=== PATIENT | male | born 1945 | race Caucasian/White ===

== ENCOUNTER 2016-08-21 05:42 | Outpatient (CLI) | payer MEDICARE, OTHER ==
[~2016-08-21] VITALS: Ht 188 cm; Wt 111.1 kg
[~2016-08-21 05:42] MED LIST: ALPR1TAB72 PO; AMLO10TA82 PO; AMLODIPINE; ARIP2TAB3 PO; CANDESARTAN; CLN.1T PO; CLN150C1RX; DESV100T PO; DULCOLAX STOOL SOFTE; DULO30CA; GLBR5T PO; INDO25CA PO; LEVO5DRO OP; LORA0.5T34; LORA1TAB PO; MTF500T PO; MULT1TAB63; NEBI5TAB8 PO; OXYC-12 PO; VALS320T8 PO; ZONI100C11 PO
--- OUTSIDE RECORDS SUMMARY | 2016-08-21 05:45 | XMS REPORT | Continuity of Care Document ---
Author Author [facility] Organization [facility] Address Unknown Phone Unavailable Care Team Providers Care Cna Per Diem Name Role Phone Aristides Sungyd PCP [phone] Source Comments Some departments are not documenting in the electronic medical record. If you do not see the information that you expected, contact Release of Information in the Health Information Management department at [phone] for further assistance in locating additional records.[facility] Active Allergies and Adverse Reactions No Known Allergies Current Medications Prescription Sig. Disp. Refills Start End Date Status Date metFORMIN (GLUCOPHAGE) Take 500 mg by mouth Active 500 mg tablet daily. glimepiride (AMARYL) 4 mg Take 4 mg by mouth daily. Active tablet vilazodone (VIIBRYD) 40 Take 40 mg by mouth Active mg tab daily. amLODIPine (NORVASC) 10 Take 10 mg by mouth Active mg tablet daily. asenapine(+) (SAPHRIS) 5 Place 5 mg under tongue Active mg subl tablet at bedtime daily. aspirin EC 81 mg tablet Take 81 mg by mouth Active daily. Take with food. DONEPEZIL HCL (DONEPEZIL Take 10 mg by mouth Active PO) daily. clonidine ER (+) (KAPVAY) Take 0.1 mg by mouth Active 0.1 mg tablet every 12 hours. dexamethasone (DECADRON) Apply 2 drops in each 20 mL 1 06/27/20 Active 0.1 % ophthalmic solution nostril 3 times a day 16 gabapentin (NEURONTIN) Take 3 Caps by mouth 180 Cap 6 08/01/20 Active 300 mg capsule twice daily. 16 prednisolone acetate USE 2 DROPS IN EACH 20 mL 0 08/09/20 Active (PRED FORTE) 1 % NOSTRIL THREE TIMES DAILY 16 ophthalmic suspension gabapentin (NEURONTIN) Take 3 Caps by mouth 270 Cap 5 12/13/1907/27 Discontin 300 mg capsule three times daily. 16 16 ued Indications: NEUROPATHIC PAIN prednisolone acetate Instil 2 drops in each 20 mL 0 07/21/20 Discontin (PRED FORTE) 1 % nostril three times 16 16 ued ophthalmic suspension daily, take one week off per month Active Problems Problem Noted Date Chronic recurrent sinusitis 08/02/2016 Overview: Seasonal allergic rhinitis due to pollen 06/27/2016 Overview: Pos skin testing [place], shots did not help Hypertrophy of inferior nasal turbinate 06/27/2016 Overview: ? allergic Nasal septal deviation 06/27/2016 Overview: Right posterior superior Hx of bariatric surgery 06/27/2016 S/P gastric surgery 06/27/2016 Overview: "gastric sleave", [facility] Now weighs 245 (was 350) prior to surgery Elevated rheumatoid factor 05/03/2016 Cervical stenosis of spine 12/13/2015 Mild cognitive impairment 12/13/2015 Alcohol abuse 08/20/2015 Impaired gait 08/16/2015 Peripheral polyneuropathy (HCC) 08/16/2015 Ulnar neuropathy of left upper extremity 08/16/2015 Cervical radiculopathy 08/16/2015 Memory deficit 08/16/2015 Overview: Hx EtOh in past Essential hypertension 06/27/1998 Overview: Controlled on meds Most Recent Encounters Date Type Specialty Providers Description 09/29/2016 [facility] Nathan Reinoso MD Chronic sinusitis Encounter 08/09/2016 Refill Otolaryngology Nathan Reinoso MD 08/02/2016 Office Visit Otolaryngology Nathan Reinoso MD Chronic recurrent sinusitis (Primary Dx); Memory deficit; Nasal septal deviation; Hypertrophy of inferior nasal turbinate 08/02/2016 [facility] Radiology Nathan Reinoso MD Encounter 08/02/2016 Prep for Case Otolaryngology Nathan Reinoso MD 07/27/2016 Refill Neurology Jennifer Fraire MBBS 07/21/2016 Orders Only Otolaryngology Nathan Reinoso MD 07/21/2016 Orders Only Allergy,Immunology and JetanalAileen helton MD Rheumatoid factor Rheumatology positive 07/19/2016 Orders Only Allergy,Immunology and JetanalinAileen MD Rheumatoid factor Rheumatology positive 07/13/2016 Telephone Allergy,Immunology and JetanalAileen helton MD Imaging - xray order Rheumatology 07/12/2016 Office Visit Allergy,Immunology and Aileen Jade MD Rheumatoid factor Rheumatology positive (Primary Dx); Primary osteoarthritis of both hands; Polyneuropathy, peripheral sensorimotor axonal; Cervical spinal stenosis; History of alcohol abuse 06/27/2016 Office Visit Otolaryngology Nathan Reinoso MD Seasonal allergic rhinitis due to pollen (Primary Dx); Hypertrophy of inferior nasal turbinate; Essential hypertension; Nasal septal deviation; S/P gastric surgery 05/23/2016 Documentation Neurology Jennifer Fraire MBBS Social History Tobacco Use Types Packs/Day Years Used Date Former Smoker Cigarettes Started: 08/13/1997 Smokeless Tobacco: Never Used Alcohol Use Drinks/Week oz/Week Comments No 0 Standard 0.0 drinks or equivalent Last Filed Vital Signs Vital Sign Reading Time Taken Blood Pressure 176/83 08/02/2016 12:16 PM NAPKIN MACHINE OPERATOR Pulse 70 08/02/2016 12:16 PM NAPKIN MACHINE OPERATOR Temperature 36.5 C (97.7 F) 07/12/2016 1:56 PM NAPKIN MACHINE OPERATOR Respiratory Rate - - Height 1.88 m (6' 2") 08/02/2016 12:16 PM NAPKIN MACHINE OPERATOR Weight 111.131 kg (245 lb) 08/02/2016 12:16 PM NAPKIN MACHINE OPERATOR Body Mass Index 31.44 08/02/2016 12:16 PM NAPKIN MACHINE OPERATOR Oxygen Saturation - - Plan of Care Date Type Specialty Providers Description 09/14/2016 Appointment Anesthesiology Antonio Reinoso MD [address] [facility] [address] [place] [address] [phone] (Fax) 09/29/2016 Surgery Nathan Reinoso MD FUNCTIONAL ENDOSCOPIC [address] [facility] SINUS SURGERY WITH [address] [place] [address] TISSUE REMOVAL [phone] INDICATED [phone] (Fax) 01/30/2017 Appointment Neurology Jennifer Fraire MBBS [address] [facility] [address] [place] [address] [phone] (Fax) Health Maintenance Due Date Last Done Comments Physical (Comprehensive) 1952 Exam Pertussis Vaccine 1957 Tetanus Vaccine 1963 Colorectal Cancer 1996 Screening Shingles Vaccine 2006 Prevnar/Pneumovax (#1) 2011 Influenza Vaccine 04/13/2016 Hepatitis C Screening Completed 07/13/2016 Results from Last [address] MAXIFACIAL/SINUS WO CONTRAST (08/02/2016 12:01 PM) Impressions 1. Normal appearance of the nasal turbinates with left maxillary sinus and bilateral ethmoid air cell mucosal thickening. 2. Right canal wall down mastoidectomy mastoidectomy with small irregular ossicles. Approved by Theodore Aquino M.D. on 08/02/2016 4:14 PM By my electronic signature, I attest that I have personally reviewed the images for this examination and formulated the interpretations and opinions expressed in this report Finalized by JUAQUIN WHARTON M.D. on 08/02/2016 5:17 PM. Dictated by Theodore Aquino M.D. on 08/02/2016 2:29 PM. Narrative EXAM: CT MAXILLOFACIAL HISTORY: 70-year-old male, hypertrophy of inferior nasal turbinate; allergic rhinitis, seasonal allergic rhinitis due to pollen, hypertrophy of inferior nasal turbinate, nasal septal deviation TECHNIQUE:Multiple contiguous axial images were obtained through the maxillofacial region with coronal reformatted images. COMPARISON: MRI head chamber 2015 FINDINGS: JUAQUIN WHARTON M.D. has personally reviewed these images and formulated the interpretations and opinions expressed in this report. The visualized intracranial structures, globes, and orbits are unremarkable. There is mild mucosal thickening in the left maxillary sinus as well as scattered areas of mild mucosal thickening in the bilateral ethmoid air cells. The frontal and sphenoid sinuses are clear. There is no mucoperiosteal reaction or destructive osseous lesion. Previous right canal wall down mastoidectomy is present with small irregular ossicles. The nasal turbinates appear normal. Nasal septum is deviated to the right anteriorly with a small left deviated nasal spur more posteriorly. The dentition is unremarkable. Procedure Note Interface, Radiant Results - SunAug 02, 2016 5:21 PM NAPKIN MACHINE OPERATOR EXAM: CT MAXILLOFACIAL HISTORY: 70-year-old male, hypertrophy of inferior nasal turbinate; allergic rhinitis, seasonal allergic rhinitis due to pollen, hypertrophy of inferior nasal turbinate, nasal septal deviation TECHNIQUE: Multiple contiguous axial images were obtained through the maxillofacial region with coronal reformatted images. COMPARISON: MRI head chamber 2015 FINDINGS: JUAQUIN WHARTON M.D. has personally reviewed these images and formulated the interpretations and opinions expressed in this report. The visualized intracranial structures, globes, and orbits are unremarkable. There is mild mucosal thickening in the left maxillary sinus as well as scattered areas of mild mucosal thickening in the bilateral ethmoid air cells. The frontal and sphenoid sinuses are clear. There is no mucoperiosteal reaction or destructive osseous lesion. Previous right canal wall down mastoidectomy is present with small irregular ossicles. The nasal turbinates appear normal. Nasal septum is deviated to the right anteriorly with a small left deviated nasal spur more posteriorly. The dentition is unremarkable. IMPRESSION 1. Normal appearance of the nasal turbinates with left maxillary sinus and bilateral ethmoid air cell mucosal thickening. 2. Right canal wall down mastoidectomy mastoidectomy with small irregular ossicles. Approved by Theodore Aquino M.D. on 08/02/2016 4:14 PM By my electronic signature, I attest that I have personally reviewed the images for this examination and formulated the interpretations and opinions expressed in this report Finalized by JUAQUIN WHARTON M.D. on 08/02/2016 5:17 PM. Dictated by Theodore Aquino M.D. on 08/02/2016 2:29 PM. ANTI SSA ANTI SSB AB (07/13/2016) Specimen Blood CRYOGLOBULIN W REFLEX IMMUNOFIXATION (07/13/2016) Specimen Blood HEPATITIS B SURFACE AG (07/13/2016) Specimen Blood HEPATITIS C AB (07/13/2016) Specimen Blood HEPATITIS B CORE AB TOT (IGG+IGM) (07/13/2016) Specimen Blood ANTI-CYCLIC CITRULLINATED PEPT (07/13/2016) Specimen Blood ELECTROPHORESIS-SERUM PROTEIN (07/13/2016) Specimen Blood HAND MIN 3 VIEWS BILATERAL (07/13/2016)
[2016-08-21] MEDS ORDERED: CLON0.1T PO (14:36)
[2016-08-21] MEDS ORDERED: DOXE10CA29 PO (14:36)
[2016-08-21] MEDS ORDERED: GABA-488 PO (14:36)
[2016-08-21] MEDS ORDERED: VILA40TA PO (14:36)
== END 2016-08-21 14:38 ==
LOC: PREOP 05:42
PROVIDERS: ATTEND Surgery Pediatric Surgery
DX: Z01.818 Encounter for other preprocedural examination (principal); Z12.11 Encounter for screening for malignant neoplasm of colon; Z86.010 Personal history of colon polyps

== ENCOUNTER 2016-08-23 09:29 | Day surgery (SDC) | payer MEDICARE, OTHER ==
[~2016-08-23] VITALS: Ht 188 cm; Wt 111.1 kg
[~2016-08-23 09:29] MED LIST changes: +CLON0.1T PO; +DOXE10CA29 PO; +GABA-488 PO; +VILA40TA PO
[2016-08-23] MEDS ORDERED: NS IV 500 ML 500 ML ONE ×2 (09:33→11:06)
--- OUTSIDE RECORDS SUMMARY | 2016-08-23 09:33 | XMS REPORT | Continuity of Care Document ---
Author Author [facility] Organization [facility] Address Unknown Phone Unavailable Care Team Providers Care Banquet Food Server Name Role Phone Aristides Sungyd PCP [phone] Source Comments Some departments are not documenting in the electronic medical record. If you do not see the information that you expected, contact Release of Information in the Health Information Management department at [phone] for further assistance in locating additional records.[facility] Active Allergies and Adverse Reactions No Known [...] to pollen 06/27/2016 Overview: Pos skin testing [place], shots did not help Hypertrophy of inferior nasal turbinate 06/27/2016 Overview: ? allergic Nasal septal deviation 06/27/2016 Overview: Right posterior superior Hx of bariatric surgery 06/27/2016 S/P gastric surgery 06/27/2016 Overview: "gastric sleave", [facility] Now weighs 245 (was 350) prior [...] Encounters Date Type Specialty Providers Description 09/29/2016 [facility] Nathan Reinoso MD Chronic sinusitis Encounter 08/09/2016 Refill Otolaryngology Nathan Reinoso MD 08/02/2016 Office Visit Otolaryngology Nathan Reinoso MD Chronic recurrent sinusitis (Primary Dx); Memory deficit; Nasal septal deviation; Hypertrophy of inferior nasal turbinate 08/02/2016 [facility] Radiology Nathan Reinoso MD Encounter 08/02/2016 Prep [...] Taken Blood Pressure 176/83 08/02/2016 12:16 PM SHOT FIREMAN Pulse 70 08/02/2016 12:16 PM SHOT FIREMAN Temperature 36.5 C (97.7 F) 07/12/2016 1:56 PM SHOT FIREMAN Respiratory Rate - - Height 1.88 m (6' 2") 08/02/2016 12:16 PM SHOT FIREMAN Weight 111.131 kg (245 lb) 08/02/2016 12:16 PM SHOT FIREMAN Body Mass Index 31.44 08/02/2016 12:16 PM SHOT FIREMAN Oxygen Saturation - - Plan of Care Date Type Specialty Providers Description 09/14/2016 Appointment Anesthesiology Antonio Reinoso MD [address] [facility] [address] [place] [address] [phone] (Fax) 09/29/2016 Surgery Nathan Reinoso MD FUNCTIONAL ENDOSCOPIC [address] [facility] SINUS SURGERY WITH [address] MAX[place] [address] TISSUE REMOVAL [phone] INDICATED [phone] (Fax) 01/30/2017 Appointment Neurology Jennifer Fraire MBBS [address] [facility] [address] [place] [address] [phone] (Fax) Health Maintenance Due Date Last Done [...] Results - SunAug 02, 2016 5:21 PM SHOT FIREMAN EXAM: CT MAXILLOFACIAL HISTORY: 70-year-old male, hypertrophy [...]
--- OUTSIDE RECORDS SUMMARY | 2016-08-23 09:34 | XMS REPORT | Continuity of Care Document ---
Author Author [facility] Organization [facility] Address Unknown Phone Unavailable Care Team Providers Care Noc Analyst Name Role Phone Aristides Sungyd PCP [phone] Source Comments Some departments are not documenting in the electronic medical record. If you do not see the information that you expected, contact Release of Information in the Health Information Management department at [phone] for further assistance in locating additional records.[facility] Active Allergies and Adverse Reactions [...] to pollen 06/27/2016 Overview: Pos skin testing [place], shots did not help Hypertrophy of inferior nasal turbinate 06/27/2016 Overview: ? allergic Nasal septal deviation 06/27/2016 Overview: Right posterior superior Hx of bariatric surgery 06/27/2016 S/P gastric surgery 06/27/2016 Overview: "gastric sleave", [facility] Now weighs 245 (was 350) prior to [...] Encounters Date Type Specialty Providers Description 09/29/2016 [facility] Nathan Reinoso MD Chronic sinusitis Encounter 08/09/2016 Refill Otolaryngology Nathan Reinoso MD 08/02/2016 Office Visit Otolaryngology Nathan Reinoso MD Chronic recurrent sinusitis (Primary Dx); Memory deficit; Nasal septal deviation; Hypertrophy of inferior nasal turbinate 08/02/2016 [facility] Radiology Nathan Reinoso MD Encounter 08/02/2016 [...] Taken Blood Pressure 176/83 08/02/2016 12:16 PM METEOROLOGICAL OBSERVER Pulse 70 08/02/2016 12:16 PM METEOROLOGICAL OBSERVER Temperature 36.5 C (97.7 F) 07/12/2016 1:56 PM METEOROLOGICAL OBSERVER Respiratory Rate - - Height 1.88 m (6' 2") 08/02/2016 12:16 PM METEOROLOGICAL OBSERVER Weight 111.131 kg (245 lb) 08/02/2016 12:16 PM METEOROLOGICAL OBSERVER Body Mass Index 31.44 08/02/2016 12:16 PM METEOROLOGICAL OBSERVER Oxygen Saturation - - Plan of Care Date Type Specialty Providers Description 09/14/2016 Appointment Anesthesiology Antonio Reinoso MD [address] [facility] [address] [place] [address] [phone] (Fax) 09/29/2016 Surgery Nathan Reinoso MD FUNCTIONAL ENDOSCOPIC [address] [facility] SINUS SURGERY WITH [address] [place] [address] TISSUE REMOVAL [phone] INDICATED [phone] (Fax) 01/30/2017 Appointment Neurology Jennifer Fraire MBBS [address] [facility] [address] [place] [address] [phone] (Fax) Health Maintenance Due Date Last Done [...] Results - SunAug 02, 2016 5:21 PM METEOROLOGICAL OBSERVER EXAM: CT MAXILLOFACIAL HISTORY: 70-year-old male, hypertrophy [...]
[2016-08-23 09:45] VITALS: BP 162/83
[2016-08-23] MEDS: NS IV 500 ML 500 ML IV PRN ×2 (09:55→11:13)
[2016-08-23] MEDS ORDERED: FLUMAZENIL (ROMAZICON) 0.1 MG/ML 5 ML VIAL INJ PRN (10:30)
[2016-08-23] MEDS ORDERED: LIDOCAINE JELLY 2% (XYLOCAINE) 5 ML TUBE MM PRN (10:30)
[2016-08-23] MEDS ORDERED: NALOXONE 0.4 MG/ML 1 ML (NARCAN) VIAL IVP PRN (10:30)
[2016-08-23] MEDS ORDERED: GLIM4TAB PO (10:48)
[2016-08-23] MEDS ORDERED: DONE10TA41 PO (10:48)
[2016-08-23] MEDS ORDERED: ASPI-999 PO (10:48)
[2016-08-23] MEDS ORDERED: fentaNYL INJECTION 100 MCG/2 ML AMP ONE ×2 (11:06)
[2016-08-23] MEDS ORDERED: MIDAZOLAM 2 MG/2 ML (VERSED) VIAL ONE ×4 (11:06)
[2016-08-23] MEDS ORDERED: LIDOCAINE JELLY 2% (XYLOCAINE) 5 ML TUBE ONE (11:07)
--- NOTE | 2016-08-23 11:07 | Conscious Sedation/ASA ---
Conscious Sedation Pre-Proced Time Reviewed: 11:00 ASA Class: 2 Airway Mallampati Classification: (grindstone appropriate class) I. II. III, IV Lungs Heart ASA score ASA 1: a normal healthy patient ASA 2: a patient with a mild systemic disease (mid diabetes, controlled hypertension, obesity ASA 3: a patient with a severe systemic disease that limits activity (angina , COPD, prior Myocardial infarction) ASA 4: a patient with an incapacitating disease that is a constant threat to life (CHF, renal failure) ASA 5: a moribund patient not expected to survive 24 hrs. (ruptured aneurysm) ASA 6: a declared brain patient whose organs are being harvested. For emergent operations, add the letter E after the classification Grade 2 Sedation Plan: Analgesia, Amnesia, Plan communicated to team members, Discussed options with patient/fam, Discussed risks with patient/fam Note The patient is an appropriate candidate to undergo the planned procedure, sedation, and anesthesia. The patient immediately re-assessed prior to indication. RAUL LONG MD Aug 23, 2016 11:07 am
--- NOTE | 2016-08-23 11:08 | Progress Note-Pre Operative ---
Pre-Operative Progress Note H&P Reviewed The H&P was reviewed, patient examined and no changes noted. Date H&P Reviewed: Aug 23, 2016 Time H&P Reviewed: 11:00 Pre-Operative Diagnosis: history colon polyp RAUL LONG MD Aug 23, 2016 11:07 am
[2016-08-23] MEDS: fentaNYL INJECTION 100 MCG/2 ML AMP IVP PRN ×4 (11:14→11:30)
[2016-08-23] MEDS ORDERED: morphine INJ 10 MG/ML 1ML (SYR OR VIAL) IV PRN (11:15)
[2016-08-23] MEDS ORDERED: HYDROcodone/APAP 5 MG/325 MG (LORTAB) TAB PO PRN (11:15)
[2016-08-23] MEDS ORDERED: ACETAMINOPHEN 325 MG TABLET/CAPLET (TYLENOL) PO PRN (11:15)
[2016-08-23] MEDS ORDERED: ONDANSETRON 4 MG/2 ML (SDV) Z0FRAN IV PRN (11:15)
[2016-08-23] MEDS: MIDAZOLAM 2 MG/2 ML (VERSED) VIAL IVP PRN ×4 (11:20→11:28)
[2016-08-23 12:20] VITALS: BP 122/74
--- NOTE | 2016-08-23 12:22 | Progress Note-Post Operative ---
Post-Operative Progess Note Pre-Operative Diagnosis history colon polyp Post-Operative Diagnosis mild chronic stage 2 ext and int hemorrhoids, mild sigmoid diverticulosis. Post-Op Procedure Note Date of Procedure: Aug 23, 2016 Name of Procedure: Colonoscopy Anesthesia Type CS Estimated blood loss (mL): RAUL Marvin MD Aug 23, 2016 12:22 pm
--- NOTE | 2016-08-23 12:23 | Discharge Inst-Surgical ---
D/C Lap Instructions-MERCEDES Follow Up 10 years Activity as tolerated High Fiber Diet 25g or more per day Avoid Alcohol, Caffeine, Spicy [place] and Acid foods. Drink 64 fluid oz or more of fluids per day. Symptoms to Report: Fever over 101 degree F, Nausea/Vomiting If any problems/questions: Contact your physician or go to Emergency Room RAUL LONG MD Aug 23, 2016 12:23 pm
[2016-08-23 12:35] VITALS: BP 126/71
[2016-08-23 12:40] VITALS: BP 126/71
--- NOTE | 2016-08-23 13:07 | OPERATIVE REPORT ---
PROCEDURE PHYSICIAN: RAUL SULLIVAN DATE OF PROCEDURE: 08/23/2016 ATTENDING PRIMARY CARE PHYSICIAN: Dr. Reji Sung. PREOPERATIVE DIAGNOSIS: History of colon polyp. POSTOPERATIVE DIAGNOSES: 1. Chronic, stage II external and internal hemorrhoids. 2. Mild sigmoid diverticulosis. PROCEDURE: Colonoscopy. SURGEON: Dr. Sullivan. ANESTHESIA: Conscious sedation. ESTIMATED BLOOD LOSS: Minimal. FINDINGS: 1. Chronic, stage II external and internal hemorrhoids, not actively edematous or inflamed and no bleeding. 2. Prostate gland was palpable and appeared normal. 3. There was a mild sigmoid diverticulosis. 4. The remainder of the colon was normal. DISPOSITION: The patient tolerated procedure well. Mr. Reji Simpson is a 70-year-old male in need of a follow-up screening colonoscopy. This gentleman reports that for the most part, he is doing well. He is status post laparoscopic gastric sleeve resection and has lost approximately 100 pounds. He reports that his last colonoscopy was in 2005 where a polyp was identified, biopsied and found to be benign. Since that time he has not had a colonoscopy. He states that for the most part, stools are normally soft and does not report any episodes of constipation, as well as no red blood per rectum or any dark tarry stools. He also does not report any family history of colon cancer. PROCEDURE: The patient was brought to the endoscopy suite, laid in left lateral decubitus position. After adequate IV pain and sedative medications and conscious sedation anesthesia, a digital rectal examination was performed. Chronic stage II external and internal hemorrhoids were identified, which were not actively edematous or inflamed and no bleeding. Normal sphincter tone was felt and no palpable masses. The prostate gland was palpable and appeared normal. The endoscope was then intubated into the anus and the rectum gently insufflated. The endoscope was then advanced into valves of Mendez of the rectum with no polyps or any neoplasms identified. We then proceeded to the sigmoid colon where a mild sigmoid diverticulosis identified. There were no mucosal inflammatory changes to indicate any active diverticulitis. The endoscope was then advanced through the remainder of the descending, transverse, and ascending colon to the cecum. These segments were normal. There were no polyps or any neoplasms identified throughout the colon or rectum. The endoscope was then slowly withdrawn while taking a second look and suctioning of residual air with no additional findings. The patient tolerated the procedure well. We will have him continue with medical management with a high fiber diet with at least 30 grams of fiber per day, as well as at least 64 fluid ounces of water daily to promote soft stools on a daily basis. He does not need another colonoscopy for 10 years. Job ID: [id number] Dictated Date: 08/23/2016 12:07:41 Supply Chain Design Manager Date: 08/23/2016 13:00:10 / ludmila
== END 2016-08-23 12:40 | disposition home or self-care (01) ==
LOC: SDC 09:29
PROVIDERS: ATTEND Surgery Pediatric Surgery
DX: K57.90 Diverticulosis of intestine, part unspecified, without perforation or abscess without bleeding (principal); K64.1 Second degree hemorrhoids; Z86.010 Personal history of colon polyps

== ENCOUNTER 2017-09-16 15:09 | Emergency (ER) | payer MEDICARE, OTHER ==
[~2017-09-16] VITALS: Ht 188 cm; Wt 111.1 kg
[~2017-09-16 15:09] MED LIST changes: +ASPI-999 PO; +DONE10TA41 PO; +GLIM4TAB PO
--- OUTSIDE RECORDS SUMMARY | 2017-09-16 15:14 | XMS REPORT | Encounter Summary ---
Author Author [facility] Organization [facility] Address Unknown Phone Unavailable Care Team Providers Care Education Trainer Name Role Phone Jennifer Fraire Unavailable Outpatient, Radiologist Unavailable Unavailable Ayo Sung MD PCP Reason for Visit * Reason Comments Medication Refill Encounter Details Date Type Department Care Team Description 07/27/2017 Refill [facility] Jennifer Fraire MBBS Peripheral polyneuropathy [facility] Neurology [address] [facility] [address] [place] [address] [place] [address] [phone] Social History Tobacco Use Types Packs/Day Years Used Date Former Smoker Cigarettes 2 20 Quit: 09/14/1997 Smokeless Tobacco: Never Used Alcohol Use Drinks/Week oz/Week Comments Yes 0 Standard 0.0 frequently until 2003. Quit drinks or equivalent Sex Assigned at Date Recorded Not on file as of this encounter Functional Status Functional Status Response Date of Assessment Does the patient have a hearing impairment: Yes 08/16/2015 Does the patient have a visual impairment: Yes 08/16/2015 Does the patient have impaired ambulation: No 12/13/2015 Does the patient have an activity of daily living No 12/13/2015 (ADL) impairment: Does the patient have an instrumental activity of No 12/13/2015 daily living (IADL) impairment: Cognitive Status Response Date of Assessment Does the patient have a cognitive impairment: No 12/13/2015 as of this encounter Miscellaneous Notes * Telephone Encounter - Jennifer Fraire MBBS - 07/27/2017 9:56 AM RISK MANAGEMENT SPECIALIST Yes, okay to refill. * Telephone Encounter - Christ, Carmen, MIDDLE SCHOOL BAND TEACHER - 07/27/2017 9:00 AM RISK MANAGEMENT SPECIALIST Please advise regarding this medication. Last seen 01/30/17. Medication noted on progress note. Please advise. NEYMAR Morales in this encounter Plan of Treatment Not on fileas of this encounter Visit Diagnoses Diagnosis Peripheral polyneuropathy (HCC) Unspecified hereditary and idiopathic peripheral neuropathy
--- OUTSIDE RECORDS SUMMARY | 2017-09-16 15:14 | XMS REPORT | Encounter Summary ---
Author Author [facility] Organization [facility] Address Unknown Phone Unavailable Care Team Providers Care Ip Architect Name Role Phone Jennifer Fraire Unavailable Outpatient, Radiologist Unavailable Unavailable Ayo Sung MD PCP Reason for Visit * Reason Comments Medication Refill Encounter Details Date Type Department Care Team Description 08/20/2017 Refill [facility] Jennifer Fraire MBBS Mild cognitive impairment [facility] Neurology [address] [place] [address] [place] [address] [phone] Social History Tobacco Use Types Packs/Day Years [...] impairment: No 12/13/2015 as of this encounter Plan of Treatment Not on fileas of this encounter Visit Diagnoses Diagnosis Mild cognitive impairment Mild cognitive impairment, so stated
--- OUTSIDE RECORDS SUMMARY | 2017-09-16 15:14 | XMS REPORT | Clinical Summary ---
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 If you do not see the information that you expected, contact Release of Information in the Health Information Management department at [phone] for further assistance in locating additional records.[facility] Allergies No Known Allergies Current Medications Prescription Sig. Disp. Refills Start End Date Status Date metFORMIN (GLUCOPHAGE) Take 250 mg by mouth Active 500 mg tablet twice daily. glimepiride (AMARYL) 4 mg Take 4 mg by mouth daily. Active tablet aspirin EC 81 mg tablet Take 81 mg by mouth Active daily. Take with food. clonidine ER (+) (KAPVAY) Take 0.1 mg by mouth Active 0.1 mg tablet every 12 hours. sodium chloride/aloe Please apply 2 spray in 14.1 g 1 09/30/19 Active vera(+) (AYR SALINE) gel both nostrils every 2 17 hours while awake donepezil (ARICEPT) 10 mg Take 1 Tab by mouth at 90 Tab 2 01/31/20 Active tabletIndications: Mild bedtime daily. 17 cognitive impairment gabapentin (NEURONTIN) Take 3 Caps by mouth 180 Cap 8 01/31/20 Active 300 mg twice daily. 17 capsuleIndications: Peripheral polyneuropathy (HCC) traMADol (ULTRAM) 50 mg Take 1 Tab by mouth every 30 Tab 3 01/31/20 Active tabletIndications: 8 hours as needed for 17 NEUROPATHIC PAIN Pain. For severe neuropathic pain, max # 30 per month Indications: NEUROPATHIC PAIN prednisolone acetate USE 2 DROPS IN EACH 20 mL 5 02/17/20 Active (PRED FORTE) 1 % NOSTRIL THREE TIMES DAILY [address] (CYMBALTA) TAKE 1 CAPSULE BY MOUTH 30 capsule 5 Active 30 mg capsuleIndications: DAILY 17 Peripheral polyneuropathy (HCC) buPROPion SR(+) Take 1 tab every morning 60 tablet 1 07/31/20 Active (WELLBUTRIN-SR) 100 mg and 1 tab in the 17 tabletIndications: afternoon (no later than Persistent depressive 2pm). disorder traZODone (DESYREL) 50 mg Take 1-3 tablets by mouth 60 tablet 2 Active tabletIndications: at bedtime as needed for 18 Persistent depressive Sleep. To take 100mg at disorder bedtime and if wakes before 5am - take 50-100mg additional vilazodone (VIIBRYD) 40 Take 1 tablet by mouth 30 tablet 1 09/07/19 Active mg tabIndications: daily. 18 Persistent depressive disorder vilazodone (VIIBRYD) 40 Take 1 tablet by mouth 30 tablet 2 05/14/20 09/07/19 Discontin mg tabIndications: daily. 17 18 ued Persistent depressive disorder traZODone (DESYREL) 50 mg Take 1-3 tablets by mouth 60 tablet 2 08/20/19 Discontin tabletIndications: at bedtime as needed for 17 18 ued Persistent depressive Sleep. To take 100mg at disorder bedtime and if wakes before 5am - take 50-100mg additional Active Problems Problem Noted Date MDD (major depressive disorder), recurrent, in partial remission (HCC) 05/14 Persistent depressive disorder 12/20/2016 Adjustment disorder with mixed anxiety and depressed mood 12/20/2016 Alcohol use disorder, moderate, in sustained remission (HCC) 12/20/2016 Chronic recurrent sinusitis 08/02/2016 Overview: Seasonal allergic rhinitis due to pollen 06/27/2016 Overview: Pos skin testing jose guadalupe Barretts did not help Hypertrophy of inferior nasal turbinate 06/27/2016 Overview: ? allergic Nasal septal deviation 06/27/2016 Overview: Right posterior superior Hx of bariatric surgery 06/27/2016 S/P gastric surgery 06/27/2016 Overview: "gastric sleave", [facility] Now weighs 245 (was 350) prior to surgery Elevated rheumatoid factor 05/03/2016 Cervical stenosis of spine 12/13/2015 Mild cognitive impairment 12/13/2015 Alcohol abuse 08/20/2015 Impaired gait 08/16/2015 Peripheral polyneuropathy (HCC) 08/16/2015 Ulnar neuropathy of left upper extremity 08/16/2015 Cervical radiculopathy 08/16/2015 Memory deficit 08/16/2015 Overview: Hx EtOh in past Essential hypertension 06/27/1998 Overview: Controlled on meds Resolved Problems Problem Noted Date Resolved Date Chronic sinusitis 09/29/2016 01/23/2017 Encounters Date Type Specialty Care Team Description 08/20/2017 Refill Neurology Jennifer Fraire MBBS Mild cognitive impairment 07/27/2017 Refill Neurology Jennifer Fraire MBBS Peripheral polyneuropathy (HCC) from Last 3 Months Family History Medical History Relation Name Comments Coronary Artery Disease Father Relation Name Status Comments Father Social History Tobacco Use Types Packs/Day Years Used Date Former Smoker Cigarettes 2 20 Quit: 09/14/1997 Smokeless Tobacco: Never Used Alcohol Use Drinks/Week oz/Week Comments Yes 0 Standard 0.0 frequently until 2003. Quit drinks or equivalent Sex Assigned at Date Recorded Not on file Last Filed Vital Signs Vital Sign Reading Time Taken Blood Pressure 153/89 05/23/2017 10:20 AM CDT Pulse 61 05/23/2017 10:20 AM CDT Temperature 36.2 C (97.2 F) 09/30/2016 9:03 AM [employer] Respiratory Rate - - Oxygen Saturation 98% 01/30/2017 11:32 AM CDT Inhaled Oxygen - - Concentration Weight 113.9 kg (251 lb 3.2 oz) 05/23/2017 10:20 AM CDT Height 188 cm (6' 2") 05/23/2017 10:20 AM CDT Body Mass Index 32.25 05/23/2017 10:20 AM CDT Plan of Treatment Health Maintenance Due Date Last Done Comments PHYSICAL (COMPREHENSIVE) 1953 EXAM PERTUSSIS VACCINE 1957 TETANUS VACCINE 1963 COLORECTAL CANCER 1996 SCREENING SHINGLES VACCINE 2006 ABDOMINAL AORTIC ANEURYSM 2011 SCREENING PREVNAR/PNEUMOVAX (#1) 2011 INFLUENZA VACCINE 03/13/2017 HEPATITIS C SCREENING Completed 07/13/2016 Results Not on filefrom Last 3 Months
--- OUTSIDE RECORDS SUMMARY | 2017-09-16 15:14 | XMS REPORT | Continuity of Care Document ---
Author Author [facility] Organization [facility] Address Unknown Phone Unavailable Care Team Providers Care Help Desk Assistant Name Role Phone [employer] Unavailable Unavailable Problems Medications Allergies, Adverse Reactions, Alerts Immunizations Results Vital Signs Encounters Location Location Details Encounter Type Encounter Number Reason For Visit Attending Provider ADM Date DC Date Status Source OUTPATIENT [id number] LORENE WHITEOVER 08/02/2016 08/02/2016 Active [facility] Karma GARLAND Active [facility] Procedures Plan of Care Social History Assessment and Plan Family History Advance Directives Functional Status
--- OUTSIDE RECORDS SUMMARY | 2017-09-16 15:15 | XMS REPORT | Continuity of Care Document ---
Author Author [facility] Organization [facility] Address Unknown Phone Unavailable Allergies Active Description Code Type Severity Reaction Onset Reported/Identified Relationship to Patient Clinical Status Yes NKANo Known Allergies NKA Miscellaneous Allergy Unknown N/A 08/23/2016 Medications There is no data. Problems Date Dx Coded Attending Type Code Diagnosis Diagnosed By 03/21/2010 Ot 211.3 03/21/2010 Ot 562.10 03/21/2010 Ot V67.09 12/15/2011 Ot 250.00 DIAB PATITO WO COMPL, TYPE II OR UNSPEC TY 12/15/2011 Ot 278.01 MORBID OBESITY 12/15/2011 Ot 530.11 REFLUX ESOPHAGITIS 12/15/2011 Ot V85.41 BODY MASS INDEX 40.0-44.9, ADULT 01/28/2012 Ot 250.00 DIAB PATITO WO COMPL, TYPE II OR UNSPEC TY 01/28/2012 Ot 300.00 ANXIETY STATE NOS 01/28/2012 Ot 401.9 HYPERTENSION NOS 01/28/2012 Ot 780.4 DIZZINESS AND GIDDINESS 01/28/2012 Ot 782.0 SKIN SENSATION DISTURB 01/28/2012 Ot V58.69 OTH MED,LT, CURRENT USE 02/10/2012 Ot 885.0 AMPUTATION THUMB 02/10/2012 Ot E000.8 OTHER EXTERNAL CAUSE STATUS 02/10/2012 Ot E849.0 ACCIDENT IN HOME 02/10/2012 Ot 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.4 WOODWORKING MACHINE ACC 02/10/2012 Ot V06.1 DIPHTHERIA- TETANUS-PERTUSSIS, COMBINED [ 03/18/2012 Ot 250.00 DIAB PATITO WO COMPL, TYPE II OR UNSPEC TY 03/18/2012 Ot 278.00 OBESITY, NOS 03/18/2012 Ot 401.9 HYPERTENSION NOS 03/18/2012 Ot 564.00 UNSPEC CONSTIPATION 03/18/2012 Ot V45.86 BARIATRIC SURGERY STATUS 03/18/2012 Ot V85.43 BODY MASS INDEX 50.0-59.9, ADULT 07/22/2012 Ot 807.02 FRACTURE TWO RIBS-CLOSED 07/22/2012 Ot 959.11 OTH INJURY OF CHEST WALL 07/22/2012 Ot E000.8 OTHER EXTERNAL CAUSE STATUS 07/22/2012 Ot E849.0 ACCIDENT IN HOME 07/22/2012 Ot E888.8 FALL NEC 06/10/2015 Ot V72.84 06/10/2015 Ot V72.84 06/10/2015 Ot 331.9 06/10/2015 Ot 780.79 06/10/2015 Ot 784.59 06/10/2015 MICHEAL HARDEN, СВЕТЛАНА R Ot 715.37 06/10/2015 MICHEAL HARDEN, СВЕТЛАНА R Ot 729.5 06/11/2015 MICHEAL HARDEN, СВЕТЛАНА R Ot G47.09 OTHER INSOMNIA 06/11/2015 MICHEAL HARDEN, СВЕТЛАНА R Ot R06.83 SNORING 08/31/2015 Ot V72.84 08/31/2015 Ot V72.84 08/31/2015 Ot 331.9 08/31/2015 Ot 780.79 08/31/2015 Ot 784.59 08/31/2015 MICHEAL HARDEN, СВЕТЛАНА R Ot 715.37 08/31/2015 MICHEAL HARDEN, СВЕТЛАНА R Ot 729.5 09/29/2015 Ot G62.9 09/29/2015 Ot M54.12 09/29/2015 Ot R26.9 07/13/2016 Ot V72.84 EXAM PRE- OPERATIVE NOS 07/13/2016 Ot V72.84 EXAM PRE- OPERATIVE NOS 07/13/2016 Ot 331.9 CEREB DEGENERATION NOS 07/13/2016 Ot 780.79 OTH MALAISE FATIGUE 07/13/2016 Ot 784.59 OTHER SPEECH DISTURBANCE 07/13/2016 MICHEAL HARDEN, СВЕТЛАНА R Ot 715.37 LOC OSTEOARTH NOS-ANKLE 07/13/2016 MICHEAL HARDEN, СВЕТЛАНА R Ot 729.5 PAIN IN LIMB 07/13/2016 Ot G62.9 POLYNEUROPATHY, UNSPECIFIED 07/13/2016 Ot M54.12 RADICULOPATHY, CERVICAL REGION 07/13/2016 Ot R26.9 UNSPECIFIED ABNORMALITIES OF GAIT AND MO 07/17/2016 ISH HARDEN, PIM Ot M19.041 PRIMARY OSTEOARTHRITIS, RIGHT HAND 07/17/2016 ISH HARDEN, PIM Ot M19.042 PRIMARY OSTEOARTHRITIS, LEFT HAND 07/17/2016 ISH HARDEN, PIM Ot R76.8 OTHER SPECIFIED ABNORMAL IMMUNOLOGICAL F 07/18/2016 ISH HARDEN, PIM Ot M19.041 PRIMARY OSTEOARTHRITIS, RIGHT HAND 07/18/2016 ISH HARDEN, PIM Ot M19.042 PRIMARY OSTEOARTHRITIS, LEFT HAND 07/18/2016 ISH HARDEN, PIM Ot R76.8 OTHER SPECIFIED ABNORMAL IMMUNOLOGICAL F 08/10/2016 ISH HARDEN, PIM Ot M19.041 PRIMARY OSTEOARTHRITIS, RIGHT HAND 08/10/2016 ISH HARDEN, PIM Ot M19.042 PRIMARY OSTEOARTHRITIS, LEFT HAND 08/10/2016 ISH HARDEN, PIM Ot R76.8 OTHER SPECIFIED ABNORMAL IMMUNOLOGICAL F 08/23/2016 RAUL LONG MD, Ot K57.90 DVRTCLOS OF INTEST, PART UNSP, W/O PERF 08/23/2016 RAUL LONG MD Ot K64.1 SECOND DEGREE HEMORRHOIDS 08/23/2016 RAUL LONG MD, Ot Z86.010 PERSONAL HISTORY OF COLONIC POLYPS 08/24/2016 RAUL LONG MD, Ot K57.90 DVRTCLOS OF INTEST, PART UNSP, W/O PERF 08/24/2016 RAUL LONG MD Ot K64.1 SECOND DEGREE HEMORRHOIDS 08/24/2016 RAUL LONG MD, Ot Z86.010 PERSONAL HISTORY OF COLONIC POLYPS 08/27/2016 RAUL LONG MD Ot Z01.818 ENCOUNTER FOR OTHER PREPROCEDURAL EXAMIN 08/27/2016 RAUL LONG MD, Ot Z12.11 ENCOUNTER FOR SCREENING FOR MALIGNANT NE 08/27/2016 RAUL LONG MD, Ot Z86.010 PERSONAL HISTORY OF COLONIC POLYPS 08/30/2016 RAUL LONG MD, Ot K57.90 DVRTCLOS OF INTEST, PART UNSP, W/O PERF 08/30/2016 RAUL LONG MD, Ot K64.1 SECOND DEGREE HEMORRHOIDS 08/30/2016 RAUL LONG MD, Ot Z86.010 PERSONAL HISTORY OF COLONIC POLYPS 09/01/2016 ISH HARDEN, RAY Ot M19.041 PRIMARY OSTEOARTHRITIS, RIGHT HAND 09/01/2016 ISH HARDEN, PIM Ot M19.042 PRIMARY OSTEOARTHRITIS, LEFT HAND 09/01/2016 ISH HARDEN, PIM Ot R76.8 OTHER SPECIFIED ABNORMAL IMMUNOLOGICAL F Procedures There is no data. Results There is no data. Encounters ACCT No. Visit Date/Time Discharge Status Pt. Type Provider Facility Loc./Unit Complaint [id number] 08/23/2016 09:29:00 08/23/2016 12:40:00 DIS Outpatient RAUL LONG MD [facility] SDC HISTORY OF POLYPS [id number] 08/21/2016 05:42:00 08/21/2016 14:38:00 DIS Outpatient RAUL LONG MD [facility] PREOP HISTORY OF POLYPS [id number] 07/13/2016 15:04:00 07/13/2016 23:59:59 CLS Outpatient ISH HARDEN, PIM [facility] RAD RHEUMATOID FACTOR POSITIVE [id number] 06/10/2015 20:56:00 06/11/2015 06:00:00 DIS Outpatient СВЕТЛАНА BURTON MD [facility] SLEEP OBESERVED APNEAS HTN INSOMNIA MOOD DISORDER CECY [id number] 01/27/2014 13:59:00 01/27/2014 23:59:59 CLS Outpatient СВЕТЛАНА BURTON MD [facility] RAD POSS HEEL SPUR [id number] 09/16/2017 15:10:00 ACT Emergency VIPUL PRESCOTT MD [facility] ER FALL/R ARM AND HAND PAIN/SWELLING [id number] 09/09/2015 13:50:00 Document Registration [id number] 07/22/2012 09:45:00 Document Registration [id number] 03/18/2012 14:25:00 Document Registration [id number] 03/11/2012 15:43:00 Document Registration [id number] 02/10/2012 15:17:00 Document Registration [id number] 01/27/2012 20:47:00 Document Registration [id number] 12/15/2011 05:33:00 Document Registration [id number] 12/13/2011 08:10:00 Document Registration [id number] 12/05/2011 07:51:00 Document Registration [id number] 03/21/2010 07:19:00 Document Registration
[2017-09-16 17:04] LABS: BASOPHILS % (AUTO) 0 % (0-10); EOSINOPHILS # (AUTO) 0.2 10^3/uL (0.0-0.3); EOSINOPHILS % (AUTO) 2 % (0-10); HEMATOCRIT 36 % (40-54); LYMPHOCYTES # (AUTO) 2.8 X 10^3 (1.0-4.0); LYMPHOCYTES % (AUTO) 29 % (12-44); MEAN CORPUSCULAR HEMOGLOBIN 28 PG (25-34); MEAN CORPUSCULAR HGB CONC 33 G/DL (32-36); MEAN CORPUSCULAR VOLUME 83 FL (80-99); MEAN PLATELET VOLUME 10.1 FL (7.4-10.4); MONOCYTES # (AUTO) 1.5 X 10^3 (0.0-1.0); MONOCYTES % (AUTO) 16 % (0-12); NEUTROPHILS # (AUTO) 5.2 X 10^3 (1.8-7.8); NEUTROPHILS % (AUTO) 54 % (42-75); PLATELET COUNT 320 10^3/uL (130-400); RED BLOOD COUNT 4.37 10^6/uL (4.35-5.85); RED CELL DISTRIBUTION WIDTH 15.9 % (10.0-14.5); WHITE BLOOD COUNT 9.7 10^3/uL (4.3-11.0)
--- NOTE | 2017-09-16 17:11 | Diagnostic Imaging Report ---
INDICATION: Fall, pain. EXAMINATION: Three views of the right hand. FINDINGS: Severe arthritic changes involving proximal and distal interphalangeal joints accompanied by fusiform swelling. Wrist arthritis is greatest at the first CMC. There is no fracture or dislocation. IMPRESSION: Severe arthritic changes without fracture or acute bony abnormality. Dictated by: Dictated on workstation # [id number]
--- NOTE | 2017-09-16 17:15 | Diagnostic Imaging Report ---
INDICATION: Fell, pain in right shoulder. EXAMINATION: Right shoulder at 4:43 p.m. Three views were obtained. FINDINGS: On the transaxial view there is a thick linear lucency extending through the tip of the olecranon process. This finding is difficult to identify on the other two projections. I do suspect that this is a fracture although the age of this injury is indeterminate. No other fracture or acute bony abnormality is identified. There is at least moderate degenerative disease of both the acromioclavicular joint and the glenohumeral joint. There also appears to be fixation screws within the humeral head. These may be a sequela of prior repair of the rotator cuff. The humeral head does seem more superior in position with respect to the glenoid than usual and it may be that the repaired rotator cuff has been torn. If further evaluation of the tear of the rotator cuff is desired, then MRI would be recommended. MRI exam may also provide additional information regarding the age of the fracture involving the acromion. The soft tissues are unremarkable. IMPRESSION: There is a broad fracture line extending through the acromion. The age of this injury is uncertain, however. There may also be an injury to the repaired rotator cuff. MRI would be recommended for further evaluation. Dictated by: Dictated on workstation # [id number]
--- NOTE | 2017-09-16 17:57 | Diagnostic Imaging Report ---
EXAMINATION: Right forearm at 0542 AM INDICATION: Fell AP and lateral views were obtained. There is no fracture, dislocation or acute bony abnormality evident. The elbow and wrist joints are fairly well-maintained. There is a soft tissue calcification posterior to the distal humerus. This may be a sequela of prior trauma to the triceps tendon. There is also soft tissue calcification along the medial malleolus. This too could be related to a previous injury. The soft tissues are otherwise unremarkable. IMPRESSION: There is no evidence for an acute bony abnormality. Dictated by: Dictated on workstation # [id number]
--- NOTE | 2017-09-16 19:09 | ED Fall/Injury ---
General Chief Complaint: Upper Extremity Stated Complaint: FALL/R ARM AND HAND PAIN/SWELLING Nursing Triage Note: STATES HE FELL DOWN TWO STEPS YESTERDAY LANDING ON RIGHT SHOULDER AND HAND. DENIES HITTING HIS HEAD. DENIES LOC. Source: patient Exam Limitations: no limitations History of Present Illness Date Seen by Provider: Sep 16, 2017 Time Seen by Provider: 16:05 Initial Comments This 71-year-old gentleman presents to the emergency room for evaluation of right upper extremity injuries after falling down a couple of stairs yesterday. He was in [place] at the time visiting family and drove himself home. He fell on an outstretched hand but states his shoulder actually took the brunt of the force. He notes a right rotator cuff surgery about one month ago performed by Dr. Barron. Patient has swelling and erythema of the right hand and wrist. He has an abrasion to the right elbow. He also has pain in the right shoulder with movement. He denies any loss of consciousness, head injury, or any other injury aside from the right upper extremity. Allergies and Home Medications Allergies Coded Allergies: NKANo Known Allergies (Verified Allergy, Unknown, 05/15/07) Home Medications Aspirin 81 Mg Tab.chew, 81 MG PO DAILY, (Reported) Clonidine HCl 0.1 Mg Tablet, 0.1 MG PO BID, (Reported) Donepezil HCl 10 Mg Tablet, 10 MG PO HS, (Reported) Doxycycline Hyclate 100 Mg Tablet, 100 MG PO BID, #14 Prescribed by: VIPUL DELA CRUZ on 09/16/171912 Gabapentin 300 Mg Capsule, 900 MG PO BID, (Reported) take 3 (300mg) tabs Glimepiride 4 Mg Tablet, 4 MG PO DAILY, (Reported) Metformin Hcl 500 Mg Tablet, 500 MG PO BID, Ref 0 (Reported) take 2 (500mg) tabs Vilazodone Hydrochloride 40 Mg Tablet, 40 MG PO DAILY, (Reported) Constitutional: no symptoms reported Eyes: No Symptoms Reported Ears, Nose, Mouth, Throat: no symptoms reported Respiratory: no symptoms reported Cardiovascular: no symptoms reported Gastrointestinal: no symptoms reported Genitourinary: no symptoms reported Musculoskeletal: see HPI Skin: see HPI Psychiatric/Neurological: No Symptoms Reported Past Oiwfrvz-Nkwlej-Osulvc Hx Patient Social History Alcohol Use: Denies Use Recreational Drug Use: No Smoking Status: Former Smoker Former Smoker, Quit: Aug 21, 1997 Recent Foreign Travel: No Contact w/Someone Who Travel: No Recent Infectious Disease Expo: No Recent Hopitalizations: No Immunizations Up To Date Date of Pneumonia Vaccine: May 13, 2009 Date of Influenza Vaccine: May 13, 2016 Seasonal Allergies Seasonal Allergies: Yes Surgeries History of Surgeries: Yes (RIGHT MASTOIDECTOMY, BILAT TKR, BILAT CTR, LEFT HIP REPLACED, GASTRIC BYPAS) Surgeries: Adenoidectomy, Joint Replacement, Orthopedic (Right rotator cuff), Tonsillectomy Respiratory History of Respiratory Disorde: Yes (HX OF PE IN 1989) Respiratory Disorders: Pulmonary Embolism, Sleep Apnea Cardiovascular History of Cardiac Disorders: Yes Cardiac Disorders: Hypertension Neurological History of Neurological Disord: No Reproductive System Hx Reproductive Disorders: No Genitourinary History of Genitourinary Disor: Yes Genitourinary Disorders: Benign Prostatic Hyperpl Gastrointestinal History of Gastrointestinal Di: Yes Gastrointestinal Disorders: Polyps Musculoskeletal History of Musculoskeletal Dis: Yes Musculoskeletal Disorders: Arthritis Endocrine History of Endocrine Disorders: Yes Endocrine Disorders: Diabetes, Non-Insulin dep Cancer History of Cancer: No Psychosocial History of Psychiatric Problem: Yes Behavioral Health Disorders: Anxiety, Depression Integumentary History of Skin or Integumenta: No Blood Transfusions History of Blood Disorders: No Physical Exam Vital Signs Vital Sign - Last 12Hours 09/16/17 15:11 Temp 98.0 Pulse 62 Resp 18 B/P (MAP) 161/87 (111) Pulse Ox 99 Capillary Refill : Less Than 3 Seconds General Appearance: WD/WN, no apparent distress HEENT: PERRL/EOMI, normal ENT inspection Neck: normal inspection Cardiovascular: regular rate, rhythm, no edema Respiratory: lungs clear, normal breath sounds, no respiratory distress, no accessory muscle use Gastrointestinal: normal bowel sounds, non tender, soft Extremities: other (There is swelling and blanching erythema of the right hand and wrist with surprisingly little tenderness. There is an abrasion on the right elbow without any significant pain with palpation or range of motion. There is tenderness over the anterior shoulder and pain with range of motion.) Neurologic/Psychiatric: bush regenerator II-XII nml as tested, no motor/sensory deficits, alert, normal mood/affect, oriented x 3 Skin: normal color, warm/dry, other (Abrasion over the right elbow) [place] Coma Score Best Eye Response: (4) Open Spontaneously Best Verbal Response: (5) Oriented Best Motor Response: (6) Obeys Commands [place] Total: 15 Progress/Results/Core Measures Results/Orders Lab Results Laboratory Tests Test 09/16/17 16:53 09/16/17 16:55 Range/Units D-Dimer 0.78 H 0.00-0.49 UG/ML White Blood Count 9.7 4.3-11.0 10^3/uL Red Blood Count 4.37 4.35-5.85 10^6/uL Hemoglobin 12.0 L 13.3-17.7 G/DL Hematocrit 36 L 40-54 % Mean Corpuscular Volume 83 80-99 FL Mean Corpuscular Hemoglobin 28 25-34 PG Mean Corpuscular Hemoglobin Concent 33 32-36 G/DL Red Cell Distribution Width 15.9 H 10.0-14.5 % Platelet Count 320 130-400 10^3/uL Mean Platelet Volume 10.1 7.4-10.4 FL Neutrophils (%) (Auto) 54 42-75 % Lymphocytes (%) (Auto) 29 12-44 % Monocytes (%) (Auto) 16 H 0-12 % Eosinophils (%) (Auto) 2 0-10 % Basophils (%) (Auto) 0 0-10 % Neutrophils # (Auto) 5.2 1.8-7.8 X 10^3 Lymphocytes # (Auto) 2.8 1.0-4.0 X 10^3 Monocytes # (Auto) 1.5 H 0.0-1.0 X 10^3 Eosinophils # (Auto) 0.2 0.0-0.3 10^3/uL Basophils # (Auto) 0.0 0.0-0.1 10^3/uL Uric Acid 4.2 2.6-7.2 MG/DL C-Reactive Protein High Sensitivity 2.98 H 0.00-0.50 MG/DL My Orders Orders - VIPUL PRESCOTT MD Shoulder, Right, 3 Views (09/16/17 16:14) Hand, Right, 3 Views (09/16/17 16:14) Cbc With Automated Diff (09/16/17 16:46) Hs C Reactive Protein (09/16/17 16:46) Saline Lock/Iv-Start (09/16/17 16:46) Forearm, Right, 2 Views (09/16/17 17:35) Us Venous Upper Ext Rt (09/16/17 17:35) Fibrin Degradation Products (09/16/17 17:36) Uric Acid (09/16/17 18:17) Clindamycin Capsule (Cleocin Capsule) (09/16/17 19:15) Doxycycline Hyclate Tablet (Vibramycin T (09/16/17 19:15) Vital Signs/I&O Vital Sign - Last 12Hours 09/16/17 09/16/17 15:11 19:15 Temp 98.0 98.0 Pulse 62 62 Resp 18 18 B/P (MAP) 161/87 (111) Pulse Ox 99 99 Blood Pressure Mean: 111 Progress Note : Progress Note Patient was first evaluated for fractures with x-ray. A fracture of the right acromion on was noted. Images were reviewed by Dr. Bonilla who recommended sling and outpatient follow-up. When no fractures were noted in the hand or forearm further workup with labs was felt appropriate. There is no significant evidence of infection or gout. Workup was further pursued for DVT as patient has a history of pulmonary emboli. Ultrasound revealed no DVT. Patient was placed in a sling and instructed to have prompt follow-up with Dr. Barron. Antibiotics were initiated for possible cellulitis. Wounds were read dressed with nonstick dressing. Diagnostic Imaging Diagonstic Imaging: Xray Plain Films/CT/US/NM/MRI: other (Right shoulder) Comments Right shoulder x-ray viewed by me and report reviewed. See report below: NAME: JORDANA PIERCE [facility] REC#: [id number] PT STATUS: REG ER : 1945 PHYSICIAN: VIPUL PRESCOTT MD ADMIT DATE: 09/16/17/ER Signed Date of Exam: 09/16/17 SHOULDER, RIGHT, 3 VIEWS INDICATION: Fell, pain in right shoulder. EXAMINATION: Right shoulder at 4:43 p.m. Three views were obtained. FINDINGS: On the transaxial view there is a thick linear lucency extending through the tip of the olecranon process. This finding is difficult to identify on the other two projections. I do suspect that this is a fracture although the age of this injury is indeterminate. No other fracture or acute bony abnormality is identified. There is at least moderate degenerative disease of both the acromioclavicular joint and the glenohumeral joint. There also appears to be fixation screws within the humeral head. These may be a sequela of prior repair of the rotator cuff. The humeral head does seem more superior in position with respect to the glenoid than usual and it may be that the repaired rotator cuff has been torn. If further evaluation of the tear of the rotator cuff is desired, then MRI would be recommended. MRI exam may also provide additional information regarding the age of the fracture involving the acromion. The soft tissues are unremarkable. IMPRESSION: There is a broad fracture line extending through the acromion. The age of this injury is uncertain, however. There may also be an injury to the repaired rotator cuff. MRI would be recommended for further evaluation. Dictated by: Dictated on workstation # [id number] Dict: 09/16/171658 Trans: 09/16/171835 Interpreted by: JENNIFER MONAE MD Electronically signed by: JENNIFER MONAE MD 09/16/171835 Diagonstic Imaging: Xray Plain Films/CT/US/NM/MRI: hand Comments Hand x-ray viewed by me and report reviewed. See report below: NAME: JORDANA PIERCE [facility] REC#: [id number] PT STATUS: REG ER : 1945 PHYSICIAN: VIPUL PRESCOTT MD ADMIT DATE: 09/16/17/ER Draft Date of Exam:09/16/17 HAND, RIGHT, 3 VIEWS INDICATION: Fall, pain. EXAMINATION: Three views of the right hand. FINDINGS: Severe arthritic changes involving proximal and distal interphalangeal joints accompanied by fusiform swelling. Wrist arthritis is greatest at the first CMC. There is no fracture or dislocation. IMPRESSION: Severe arthritic changes without fracture or acute bony abnormality. Dictated on workstation # [id number] Dict: 09/16/17 1701 Trans: 09/16/17 171 [facility] [id number] Interpreted by: ALBA HODGE Diagonstic Imaging: Xray Plain Films/CT/US/NM/MRI: forearm Comments Forearm x-ray viewed by me and report reviewed. See report below: NAME: JORDANA PIERCE [facility] REC#: [id number] PT STATUS: [facility] ER : 1945 PHYSICIAN: VIPUL PRESCOTT MD ADMIT DATE: 09/16/17/ER Signed Date of Exam: 09/16/17 FOREARM, RIGHT, 2 VIEWS EXAMINATION: Right forearm at 0542 AM INDICATION: Fell AP and lateral views were obtained. There is no fracture, dislocation or acute bony abnormality evident. The elbow and wrist joints are fairly well-maintained. There is a soft tissue calcification posterior to the distal humerus. This may be a sequela of prior trauma to the triceps tendon. There is also soft tissue calcification along the medial malleolus. This too could be related to a previous injury. The soft tissues are otherwise unremarkable. IMPRESSION: There is no evidence for an acute bony abnormality. Dictated by: Dictated on workstation # [id number] Dict: 09/16/171752 Trans: 09/16/17 183 Interpreted by: JENNIFER MONAE MD Electronically signed by: JENNIFER MONAE MD 09/16/17 183 Diagonstic Imaging: Ultrasound Plain Films/CT/US/NM/MRI: other (Right upper extremity) Comments Discussed with desktop support technician and report reviewed. See report below: NAME: JORDANA PIERCE [facility] REC#: [id number] PT STATUS: [facility] ER : 1945 PHYSICIAN: VIPUL PRESCOTT MD ADMIT DATE: 09/16/17/ER Signed Date of Exam: 09/16/17 US VENOUS UPPER EXT RT EXAMINATION: Right upper extremity venous Doppler INDICATION: Arm pain Spectral and color-flow imaging of the deep venous system was performed. There is generally good blood flow and compressibility at all levels. There is no sign of a deep venous thrombosis. IMPRESSION: There is no evidence for deep venous thrombosis of the right upper extremity. Dictated by: Dictated on workstation # [id number] Dict: 09/16/17 190 Trans: 09/16/172147 Interpreted by: JENNIFER MONAE MD Electronically signed by: JENNIFER MONAE MD 09/16/17 2148 Departure Impression Impression: Primary Impression: Fracture of acromion of scapula Qualified Codes: S42.124A - Nondisplaced fracture of acromial process, right shoulder, initial encounter for closed fracture Additional Impression: Swelling of right upper extremity Disposition: HOME, SELF-CARE Condition: Improved Departure-Patient Inst. Decision time for Depature: 19:08 Referrals: СВЕТЛАНА BURTON MD (PCP/Family) Primary Care Physician Patient Instructions: How to Use a Shoulder Sling Add. Discharge Instructions: Complete your antibiotics as prescribed. Follow-up with Dr. Barron tomorrow. Return to emergency room if symptoms worsen, especially if you develop fever greater than 100. Try to stick with just Tylenol 1000 mg every 6 hours as needed for pain. For pain not controlled by Tylenol, you may use ibuprofen up to 400 mg every 6 hours as needed. Rest, icing in 20 minute intervals, and elevation should help with pain and swelling. All discharge instructions reviewed with patient and/or family. Voiced understanding. Scripts Doxycycline Hyclate (Doxycycline Hyclate) 100 Mg Tablet 100 MG PO BID, #14 TAB Prov: VIPUL PRESCOTT MD 09/16/17 Copy Copies To 1: SOFIA BARRON MD, JOSHUA T MD Sep 16, 2017 19:09
[2017-09-16] MEDS ORDERED: DOXY100T2 PO (19:13)
[2017-09-16 19:15] VITALS: BP 161/87
[2017-09-16] MEDS ORDERED: CLINDAMYCIN 150 MG (CLEOCIN) CAP PO ONE (19:15)
[2017-09-16] MEDS ORDERED: DOXYCYCLINE 100 MG (VIBRAMYCIN) TABLET PO ONE (19:15)
== END 2017-09-16 19:15 | disposition home or self-care (01) ==
LOC: EDUNIT# 15:09 → ER 15:10
DX: S42.124A Nondisplaced fracture of acromial process, right shoulder, initial encounter for closed fracture (principal); G47.30 Sleep apnea, unspecified; I10 Essential (primary) hypertension; N40.0 Benign prostatic hyperplasia without lower urinary tract symptoms; E11.9 Type 2 diabetes mellitus without complications; F41.9 Anxiety disorder, unspecified; F32.9 Major depressive disorder, single episode, unspecified; Z86.010 Personal history of colon polyps; Z79.82 Long term (current) use of aspirin; Z79.84 Long term (current) use of oral hypoglycemic drugs; Z88.1 Allergy status to other antibiotic agents; Z87.891 Personal history of nicotine dependence; Z90.89 Acquired absence of other organs; Z96.641 Presence of right artificial hip joint; Z96.653 Presence of artificial knee joint, bilateral; Z98.84 Bariatric surgery status; W11.XXXA Fall on and from ladder, initial encounter
CPT/HCPCS: 36415; 73030; 73090; 73130; 84550; 85025; 85379; 86141

== ENCOUNTER → 2017-12-24 | Outpatient (CLI) | payer MEDICARE, OTHER ==
[~2017-12-24] MED LIST changes: +DOXY100T2 PO
--- NOTE | 2017-12-24 13:11 | Diagnostic Imaging Report ---
PROCEDURE: MR imaging cervical spine without contrast. TECHNIQUE: Multiplanar, multisequence MR imaging of the cervical spine was performed without contrast. INDICATION: Fall with neck and left shoulder pain. FINDINGS: Curvature and alignment of the cervical spine is normal. The marrow signal intensity appears normal. No fracture or geographic marrow lesion is seen. There is generalized disc desiccation noted compatible with degenerative change. The cervical spinal cord demonstrates normal homogeneous signal intensity and normal morphology. C2-3: Endplate osteophytes indent the ventral thecal sac. There does appear to be moderate narrowing bilateral neural foramina. Central canal is patent. C3-4: Uncovertebral joint degenerative change results in moderate bilateral neural foraminal stenosis. There is mild central canal stenosis. C4-5: Bilateral neural foraminal stenosis is seen. Central canal is patent. C5-6: Disc/osteophyte complex indents the ventral thecal sac and produces moderate central canal narrowing. There is also moderate bilateral neural foraminal stenosis. C6-7: Uncovertebral joint degenerative change results in moderate bilateral neural foraminal stenosis. There is mild central canal stenosis. C7-T1: Central canal is patent. No significant neural foraminal stenosis is seen. IMPRESSION: Multilevel cervical spondylosis with multilevel central canal and neural foraminal stenosis described level by level above. Dictated by: Dictated on workstation # [id number]
== END ==
LOC: RAD 10:59
PROVIDERS: ATTEND Orthopaedic Surgery
DX: M48.02 Spinal stenosis, cervical region (principal); M47.22 Other spondylosis with radiculopathy, cervical region; M99.71 Connective tissue and disc stenosis of intervertebral foramina of cervical region; W19.XXXA Unspecified fall, initial encounter
CPT/HCPCS: 72141

== ENCOUNTER → 2018-01-01 | Outpatient (CLI) | payer MEDICARE, OTHER ==
--- NOTE | 2018-01-01 15:12 | Diagnostic Imaging Report ---
INDICATION: Cervical radiculopathy. TIME OF EXAM: 3:10 p.m. A single AP view of the cervical spine was obtained. Single image does show severe multilevel degenerative disc and facet disease with joint space narrowing and prominent marginal osteophyte formation. Overall study is significantly limited due to absence of a lateral view. IMPRESSION: Severe cervical spondylosis. Dictated by: Dictated on workstation # [id number]
== END ==
LOC: RAD 14:39
PROVIDERS: ATTEND Orthopaedic Surgery
DX: M47.22 Other spondylosis with radiculopathy, cervical region (principal)
CPT/HCPCS: 72020

== ENCOUNTER → 2019-09-05 | Outpatient (CLI) | payer MEDICARE, OTHER ==
[~2019-09-05] MED LIST changes: -GLIM4TAB PO; +GLIM4TAB3 PO
--- NOTE | 2019-09-05 18:52 | Diagnostic Imaging Report ---
INDICATION: Injury with pain. FINDINGS: Lumbar body heights are maintained. There is slight retrolisthesis grade 1 of L2 on L3, L3 on L4, and L4 on L5. These are off about 2 mm. There is facet arthrosis throughout the lumbar spine progressively more severe caudally. No acute endplate irregularity. The vertebral stature is within normal limits. IMPRESSION: Degenerative changes to the discs, endplates, and facets are believed to account for slight multilevel grade 1 retrolistheses. No fracture or acute-appearing abnormality however identified. Dictated by: Dictated on workstation # [id number]
== END ==
LOC: RAD 13:47
DX: M47.816 Spondylosis without myelopathy or radiculopathy, lumbar region (principal)
CPT/HCPCS: 72100

== ENCOUNTER → 2020-06-30 | Outpatient (CLI) | payer MEDICARE, OTHER ==
[~2020-06-30] MED LIST changes: -CLON0.1T PO; -GLIM4TAB3 PO; +GLIM4TAB5 PO
--- NOTE | 2020-06-30 12:51 | Diagnostic Imaging Report ---
INDICATION: Right hip pain. COMPARISON: None. FINDINGS: Two radiographic views of the right hip were obtained. There is no fracture, dislocation, bone destruction, or radiopaque foreign body. Moderate osteoarthritic changes are noted and consist of joint space narrowing with osteophyte formations and sclerotic remodeling of the articular surfaces. The visualized pelvic osseous structures demonstrate no acute fracture or dislocation. There is no bone destruction or radiopaque foreign body. The surrounding soft tissue structures are unremarkable. IMPRESSION: 1. No acute fracture or dislocation in the right hip. 2. Moderate osteoarthritic changes. Dictated by: Dictated on workstation # [id number]
== END ==
LOC: RAD 11:17
PROVIDERS: ATTEND Family Medicine
DX: M16.11 Unilateral primary osteoarthritis, right hip (principal)
CPT/HCPCS: 73502

== ENCOUNTER 2021-03-04 21:11 | Emergency (ER) | payer MEDICARE, OTHER ==
[~2021-03-04] VITALS: Ht 187.9 cm; Wt 106.5 kg
[2021-03-04] MEDS ORDERED: DULO30CA49 (21:28)
[2021-03-04] MEDS ORDERED: BIMA2.5D4 (21:28)
[2021-03-04] MEDS ORDERED: OXYC-556 (21:28)
[2021-03-04] MEDS ORDERED: ATOR20TA66 (21:28)
[2021-03-04 21:34] VITALS: BP_SYST 160; BP_SYST 162; BP_SYST 164; BP_DIAS 94; BP_DIAS 97; BP_DIAS 99
[2021-03-04 21:51] LABS: BASOPHILS # (AUTO) 0.1 10^3/uL (0.0-0.1); BASOPHILS % (AUTO) 0 % (0-10); EOSINOPHILS # (AUTO) 0.4 10^3/uL (0.0-0.3); EOSINOPHILS % (AUTO) 2 % (0-10); HEMATOCRIT 42 % (40-54); HEMOGLOBIN 13.9 g/dL (13.3-17.7); LYMPHOCYTES # (AUTO) 14.6 10^3/uL (1.0-4.0); LYMPHOCYTES % (AUTO) 51 % (12-44); MEAN CORPUSCULAR HEMOGLOBIN 29 pg (25-34); MEAN CORPUSCULAR HGB CONC 33 g/dL (32-36); MEAN CORPUSCULAR VOLUME 86 fL (80-99); MONOCYTES # (AUTO) 11.7 10^3/uL (0.0-1.0); MONOCYTES % (AUTO) 41 % (0-12); NEUTROPHILS # (AUTO) 2.1 10^3/uL (1.8-7.8); NEUTROPHILS % (AUTO) 7 % (42-75); PLATELET COUNT 204 10^3/uL (130-400); WHITE BLOOD COUNT 28.8 10^3/uL (4.3-11.0)
[2021-03-04 22:01] LABS: ALBUMIN 4.2 GM/DL (3.2-4.5); CHLORIDE 104 MMOL/L (98-107); POTASSIUM 4.5 MMOL/L (3.6-5.0); SODIUM 136 MMOL/L (135-145)
[2021-03-04 22:02] LABS: CALCIUM 9.1 MG/DL (8.5-10.1)
[2021-03-04 22:03] LABS: GLUCOSE 83 MG/DL (70-105); TOTAL PROTEIN 7.4 GM/DL (6.4-8.2)
[2021-03-04 22:04] LABS: CARBON DIOXIDE 24 MMOL/L (21-32)
[2021-03-04 22:05] LABS: BILIRUBIN,TOTAL 0.4 MG/DL (0.1-1.0); FIBRIN DEGRADATION PRODUCTS 0.5 UG/ML (0.00-0.49); INR 0.9 (0.8-1.4); PROTHROMBIN TIME PATIENT 12.9 SEC (12.2-14.7)
[2021-03-04 22:07] LABS: ALKALINE PHOSPHATASE 94 U/L (40-136); CREATININE SERUM 0.85 MG/DL (0.60-1.30); GFR ESTIMATED 88
[2021-03-04 22:08] LABS: BUN/CREATININE RATIO 14
[2021-03-04 22:10] LABS: ALANINE AMINOTRANSFERASE 23 U/L (0-55); CREATINE KINASE 91 U/L (30-200); MAGNESIUM 2.1 MG/DL (1.6-2.4)
[2021-03-04 22:14] LABS: ATYPICAL LYMPHOCYTES 3 %; BAND NEUTROPHILS 0 %; BASOPHILS % (MANUAL) 0 %; EOSINOPHILS % (MANUAL) 4 %; LYMPHOCYTES % (MANUAL) 50 %; MONOCYTES % (MANUAL) 8 %; NEUTROPHILS % (MANUAL) 12 %; REACTIVE LYMPHOCYTES 23 %; SMUDGE CELLS MOD
[2021-03-04 22:15] LABS: ANISOCYTOSIS SLIGHT; ELLIPT/OVALOCYTES SLIGHT; ERYTHROCYTE SEDIMENTATION RATE 6 MM/HR (0-30); POIKILOCYTOSIS SLIGHT
[2021-03-04 22:17] LABS: CREATINE KINASE MB 3.2 NG/ML (<6.6)
[2021-03-04 22:30] LABS: TSH (THYROID ANALYZER) 3.53 UIU/ML (0.35-4.94)
[2021-03-04 23:05] LABS: BILIRUBIN,URINE NEGATIVE (NEGATIVE); CLARITY,URINE CLEAR; COLOR,URINE YELLOW; GLUCOSE, URINE (UA) NEGATIVE (NEGATIVE); KETONES,URINE NEGATIVE (NEGATIVE); LEUKOCYTE ESTERASE ,URINE NEGATIVE (NEGATIVE); NITRITE,URINE NEGATIVE (NEGATIVE); PROTEIN,URINE NEGATIVE (NEGATIVE)
[2021-03-04 23:12] LABS: BACTERIA,URINE NEGATIVE /HPF; SQUAMOUS EPITHELIAL CELL,UR RARE /HPF
[2021-03-04] MEDS ORDERED: hydrALAZINE (APESOLINE) 20 MG/ML VIAL IV ONE (23:15)
[2021-03-04] MEDS ORDERED: 1/2 NS IV SOLUTION 1,000 ML IV SCH (23:15)
--- NOTE | 2021-03-04 23:18 | ED General ---
General Chief Complaint: Dizziness/Syncope Stated Complaint: DIZZY/HEADACHE Nursing Triage Note: c/o headache x1 week, worsening dizziness x1 hr after walking to garage. Source of Information: Patient History of Present Illness Date Seen by Provider: Mar 04, 2021 Time Seen by Provider: 21:35 Initial Comments PT ARRIVES VIA POV FROM HOME C/O DIZZINESS ON STANDING TONIGHT--BEGAN APPROXIMATELY AN HOUR AGO WHEN HE WAS WALKING TO THE GARAGE. C/O HEADACHE OFF AND ON SINCE Sunday02/28/21 STATES HEADACHE WAS IN THE BACK OF HIS HEAD, THEN WENT AWAY, CAME BACK A DAY OR TWO LATER ON RIGHT SIDE OF HEAD AND THEN WENT AWAY, THEN CAME BACK ON LEFT SIDE OF HEAD YESTERDAY, BUT IS GONE NOW NO NEW NECK OR BACK PAIN OR STIFFNESS--HAS CHRONIC NECK AND BACK PAIN NO FEVER/SWEATS/CHILLS NO COUGH NO SHORTNESS OF BREATH NO CHEST PAIN NO PALPITATIONS NO SYNCOPE NO VISION CHANGES NO NEW PARESTESIAS OR MOTOR DEFICITS--HAS CHRONIC NUMBNESS AND TINGLING IN BOTH FOREARMS AND HANDS FROM LONGSTANDING NEUROPATHY STATES HE LOST HIS TASTE AND SMELL YEARS AGO--LONG HISTORY OF SMOKING AND DRINKING IN THE PAST AND SINUS PROBLEMS NO SORE THROAT NO EAR SYMPTOMS HAS HAD SLIGHT NAUSEA WITH DIZZINESS, BUT NO VOMITING, NO DIARRHEA NO ABDOMINAL PAIN NO BODY ACHES NO URINARY SYMPTOMS HAS NOT TAKEN ANYTHING FOR SYMPTOMS NO KNOWN SICK CONTACTS OR EXPOSURE TO COVID-19 PT LIVES ALONE PT HAS HAD BOTH MODERNA VACCINES--LAST ONE 11/2020 PT IS DIABETIC, NEVER CHECKS BLOOD SUGAR DENIES ANY MISSED DOSES OF MEDICATIONS PCP: DR. ARPAN TRACY Allergies and Home Medications Allergies Coded Allergies: Jai Known Allergies (Verified Allergy, Unknown, 05/15/07) Home Medications Aspirin 81 Mg Tab.chew, 81 MG PO DAILY, (Reported) Clonidine HCl 0.1 Mg Tablet, 0.1 MG PO BID, (Reported) Donepezil HCl 10 Mg Tablet, 10 MG PO HS, (Reported) Doxycycline Hyclate 100 Mg Tablet, 100 MG PO BID Prescribed by: VIPUL DELA CRUZ on 09/16/171912 Gabapentin 300 Mg Capsule, 900 MG PO BID, (Reported) take 3 (300mg) tabs Glimepiride 4 Mg Tablet, 4 MG PO DAILY, (Reported) Metformin Hcl 500 Mg Tablet, 500 MG PO BID, (Reported) take 2 (500mg) tabs Vilazodone Hydrochloride 40 Mg Tablet, 40 MG PO DAILY, (Reported) Review of Systems Review of Systems Constitutional: see HPI; No chills, No diaphoresis; dizziness; No fever, No malaise, No weakness EENTM: see HPI Respiratory: no symptoms reported; No cough, No short of breath Cardiovascular: no symptoms reported; No chest pain, No edema, No palpitations, No syncope, No vascular heart diseas Gastrointestinal: see HPI; No abdominal pain, No constipation, No diarrhea; nausea; No vomiting Genitourinary: no symptoms reported Musculoskeletal: see HPI Skin: no symptoms reported Psychiatric/Neurological: See HPI, Headache, Paresthesia, Pre-Existing Deficit Hematologic/Lymphatic: No Symptoms Reported Immunological/Allergic: no symptoms reported Past Givdnja-Ztsedv-Zdgdsu Hx Patient Social History Tobacco Use?: Yes (SMOKED 2 PPD, QUIT 1997) Tobacco type used: Cigarettes Smoking Status: Former Smoker Smokeless Tobacco Frequency: Never a User Use of E-Cig and/or Vaping Raffi: Never a User Substance use?: No Alcohol Use?: Yes (VERY HEAVY ETOH USE IN PAST--BEER + HARD LIQUOR, QUIT 15 YEARS AGO) Alcohol type: Beer, Hard Liquor Pt feels they are or have been: No Immunizations Up To Date First/Initial COVID19 Vaccinat: 10/31 Second COVID19 Vaccination Burke: 12/01 COVID19 Vaccine Building Construction Superintendent: dayami Seasonal Allergies Seasonal Allergies: Yes Past Medical History Surgery/Hospitalization HX: COLONOSCOPIES/POLYPECTOMY--LAST ONE 2016 RIGHT ROTATOR CUFF SURGERY 2018 LEFT KNEE SCOPE 11/2005 LEFT KNEE REPLACEMENT 05/2007 RIGHT KNEE REPLACEMENT LEFT HIP REPLACEMENT 09/2011 BILATERAL CARPAL TUNNEL SURGERY GASTRIC BYPASS Surgeries: Yes (RIGHT MASTOIDECTOMY;BILAT TKR;BILAT CTR;LEFT HIP REPLACED;GASTRIC BYPASS) Abdominal, Adenoidectomy, Joint Replacement, Orthopedic, Tonsillectomy Respiratory: Yes (HX OF PE IN 1989) Pulmonary Embolism, Sleep Apnea Cardiac: Yes Hypertension Neurological: Yes (NEUROPATHY BILAT FOREARMS AND HANDS) Neuropathy Reproductive Disorders: No Genitourinary: Yes Benign Prostatic Hyperpl Gastrointestinal: Yes (GASTRIC BYPASS) Diverticulosis, Hemorrhoids, Polyps Musculoskeletal: Yes (CHRONIC NECK/BACK/GEN.PAIN;MULT ORTHO SURGERIES;RIB FX'S;R SCAPULA ACROMION) Arthritis, Fractures Endocrine: Yes (NEVER CHECKS BLOOD SUGAR) Diabetes, Non-Insulin dep HEENT: No Cancer: No Psychosocial: Yes Anxiety, Depression Integumentary: No Blood Disorders: No Physical Exam Vital Signs Vital Signs - First Documented 03/04/21 21:20 Temp 36.4 Pulse 68 Resp 16 B/P (MAP) 172/116 (134) Pulse Ox 97 O2 Delivery Room Air Capillary Refill : Less Than 3 Seconds Height, Weight, BMI Height: 6'2.00" Weight: 245lbs. 0.0oz. [id number]; 30.00 BMI Method:Stated General Appearance: No Apparent Distress, WD/WN, Other (DOES NOT APPEAR ILL OR TO BE IN ANY DISCOMFORT OR DISTRESS) HEENT: PERRL/EOMI, TMs Normal, Normal ENT Inspection, Pharynx Normal, Moist Mucous Membranes Neck: Full Range of Motion, Normal Inspection, Non Tender, Supple; No Carotid Bruit, No JVD Respiratory: Normal Breath Sounds, No Accessory Muscle Use, No Respiratory Distress Cardiovascular: Regular Rate, Rhythm, No Edema, No JVD, No Murmur, Normal Peripheral Pulses Gastrointestinal: Non Tender, Soft Extremity: Normal Inspection, No Pedal Edema Neurologic/Psychiatric: Alert, Oriented x3, No Motor/Sensory Deficits, Normal Mood/Affect, 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 Norm as Tested; No Abnormal Cerebellar Tests Skin: Normal Color, Warm/Dry Focused Exam Lactate Level 03/04/21 22:10: Lactic Acid Level 0.43L Lactic Acid Level Laboratory Tests Test 03/04/21 22:10 Lactic Acid Level 0.43 MMOL/L (0.50-2.00) L Progress/Results/Core Measures Suspected Sepsis SIRS Temperature: Pulse: 62 Respiratory Rate: 16 Laboratory Tests 03/04/21 21:45: White Blood Count 28.8H Blood Pressure 162 /99 Mean: 120 03/04/21 22:10: Lactic Acid Level 0.43L Laboratory Tests 03/04/21 21:45: Creatinine 0.85, INR Comment 0.9, Platelet Count 204, Total Bilirubin 0.4 Results/Orders Lab Results Laboratory Tests Test 03/04/21 21:38 03/04/21 21:45 03/04/21 22:10 03/04/21 22:56 Range/Units Influenza Type A (RT-PCR) Not Detected Not Detecte Influenza Type B (RT-PCR) Not Detected Not Detecte SARS-CoV-2 RNA (RT-PCR) Not Detected Not Detecte White Blood Count 28.8 H 4.3-11.0 10^3/uL Red Blood Count 4.87 4.30-5.52 10^6/uL Hemoglobin 13.9 13.3-17.7 g/dL Hematocrit 42 40-54 % Mean Corpuscular Volume 86 80-99 fL Mean Corpuscular Hemoglobin 29 25-34 pg Mean Corpuscular Hemoglobin Concent 33 32-36 g/dL Red Cell Distribution Width 15.4 H 10.0-14.5 % Platelet Count 204 130-400 10^3/uL Mean Platelet Volume 10.0 9.0-12.2 fL Immature Granulocyte % (Auto) 0 % Neutrophils (%) (Auto) 7 L 42-75 % Lymphocytes (%) (Auto) 51 H 12-44 % Monocytes (%) (Auto) 41 H 0-12 % Eosinophils (%) (Auto) 2 0-10 % Basophils (%) (Auto) 0 0-10 % Neutrophils # (Auto) 2.1 1.8-7.8 10^3/uL Lymphocytes # (Auto) 14.6 H 1.0-4.0 10^3/uL Monocytes # (Auto) 11.7 H 0.0-1.0 10^3/uL Eosinophils # (Auto) 0.4 H 0.0-0.3 10^3/uL Basophils # (Auto) 0.1 0.0-0.1 10^3/uL Immature Granulocyte # (Auto) 0.0 0.0-0.1 10^3/uL Neutrophils % (Manual) 12 % Lymphocytes % (Manual) 50 % Monocytes % (Manual) 8 % Eosinophils % (Manual) 4 % Basophils % (Manual) 0 % Band Neutrophils 0 % Atypical Lymphocytes 3 % Reactive Lymphocytes 23 % Smudge Cells MOD Poikilocytosis SLIGHT Anisocytosis SLIGHT Elliptocytes SLIGHT Erythrocyte Sedimentation Rate 6 0-30 MM/HR Prothrombin Time 12.9 12.2-14.7 SEC INR Comment 0.9 0.8-1.4 Activated Partial Thromboplast Time 28 24-35 SEC D-Dimer 0.50 H 0.00-0.49 UG/ML Sodium Level 136 135-145 MMOL/L Potassium Level 4.5 3.6-5.0 MMOL/L Chloride Level 104 98-107 MMOL/L Carbon Dioxide Level 24 21-32 MMOL/L Anion Gap 8 5-14 MMOL/L Blood Urea Nitrogen 12 7-18 MG/DL Creatinine 0.85 0.60-1.30 MG/DL Estimat Glomerular Filtration Rate 88 BUN/Creatinine Ratio 14 Glucose Level 83 70-105 MG/DL Calcium Level 9.1 8.5-10.1 MG/DL Corrected Calcium 8.9 8.5-10.1 MG/DL Magnesium Level 2.1 1.6-2.4 MG/DL Total Bilirubin 0.4 0.1-1.0 MG/DL Aspartate Amino Transf (AST/SGOT) 31 5-34 U/L Alanine Aminotransferase (ALT/SGPT) 23 0-55 U/L Alkaline Phosphatase 94 40-136 U/L Lactate Dehydrogenase 218 125-220 U/L Total Creatine Kinase 91 30-200 U/L Creatine Kinase MB 3.2 <6.6 NG/ML Troponin I < 0.028 <0.028 NG/ML C-Reactive Protein High Sensitivity 0.21 0.00-0.50 MG/DL B-Type Natriuretic Peptide 218.3 H <100.0 PG/ML Total Protein 7.4 6.4-8.2 GM/DL Albumin 4.2 3.2-4.5 GM/DL Procalcitonin 0.02 <0.10 NG/ML TSH [place] Testing 3.53 0.35-4.94 UIU/ML Monoscreen NEGATIVE NEGATIVE Lactic Acid Level 0.43 L 0.50-2.00 MMOL/L Urine Color YELLOW Urine Clarity CLEAR Urine pH 7.0 5-9 Urine Specific [place] 1.010 L 1.016-1.022 Urine Protein NEGATIVE NEGATIVE Urine Glucose (UA) NEGATIVE NEGATIVE Urine Ketones NEGATIVE NEGATIVE Urine Nitrite NEGATIVE NEGATIVE Urine Bilirubin NEGATIVE NEGATIVE Urine Urobilinogen 0.2 < = 1.0 MG/DL Urine Leukocyte Esterase NEGATIVE NEGATIVE Urine RBC (Auto) NEGATIVE NEGATIVE Urine RBC NONE /HPF Urine WBC NONE /HPF Urine Squamous Epithelial Cells RARE /HPF Urine Crystals NONE /LPF Urine Bacteria NEGATIVE /HPF Urine Casts NONE /LPF Urine Mucus NEGATIVE /LPF Urine Culture Indicated NO My Orders Orders - KRISTIN MALDONADO DO Ed Iv/Invasive Line Start (03/04/21 21:38) Ekg Tracing (03/04/21 21:38) Monitor-Rhythm Ecg Trace Only (03/04/21 21:38) BNP (03/04/21 21:38) Cbc With Automated Diff (03/04/21 21:38) Comprehensive Metabolic Panel (03/04/21 21:38) Creatine Kinase (03/04/21 21:38) Creatine Kinase Mb (03/04/21 21:38) Magnesium (03/04/21 21:38) Protime With Inr (03/04/21 21:38) Partial Thromboplastin Time (03/04/21 21:38) Thyroid Analyzer (03/04/21 21:38) Ua Culture If Indicated (03/04/21 21:38) Troponin I (03/04/21 21:38) Chest 1 View, Ap/Pa Only (03/04/21 21:38) Ct Head Wo-R/O Stroke (03/04/21 21:39) Fibrin Degradation Products (03/04/21 21:39) Procalcitonin (Pct) (03/04/21 21:39) Hs C Reactive Protein (03/04/21 21:39) Erythrocyte Sedimentation Rate (03/04/21 21:39) LDH (03/04/21 21:39) Covid 19 Inhouse Test (03/04/21 21:39) Influenza A And B By Pcr (03/04/21 21:39) Manual Differential (03/04/21 21:45) Lactic Acid Analyzer (03/04/21 22:01) Blood Culture (03/04/21 22:01) Ed Iv/Invasive Line Start (03/04/21 23:15) Monotest (03/04/21 23:15) Hydralazine Injection (Apresoline Inject (03/04/21 23:15) Ed Iv/Invasive Line Start (03/04/21 23:15) 1/2 Ns Iv Solution (0.45% Sodium Chlorid (03/04/21 23:15) Medications Given in ED Current Medications Medications Dose Ordered Sig/Octavia Route Start Time Stop Time Status Last Admin Dose Admin Hydralazine HCl 10 mg ONCE ONCE IV 03/04/21 23:15 03/04/21 23:17 DC 03/04/21 23:23 10 MG Vital Signs/I&O 03/04/21 03/04/21 03/04/21 21:20 21:34 23:58 Temp 36.4 36.7 Pulse 68 62 63 64 62 Resp 16 18 B/P (MAP) 172/116 (134) 160/94 (116) 151/81 (120) 164/97 (119) 162/99 (120) Pulse Ox 97 96 O2 Delivery Room Air Room Air 03/05/21 00:00 Intake Total 1000 ml Balance 1000 ml Capillary Refill : Less Than 3 Seconds Blood Pressure Mean: 120 Progress Note : Progress Note GIVEN IV FLUIDS AND HYDRALAZINE BP DOWN AT DISMISSAL PT STATES HE FEELS BETTER AT DISMISSAL UNEVENTFUL ER STAY NO FEVER NO HYPOXIA NO COUGH OR SHORTNESS OF BREATH NO TACHYCARDIA OR BRADYCARDIA NO CHEST PAIN OR PALPITATIONS OR ARRHYTHMIAS NO GI SYMPTOMS NO HEADACHE AT ANY TIME NO DIZZINESS DURING ER STAY ECG Initial ECG Impression Date: Mar 04, 2021 Initial ECG Impression Time: 21:48 Initial ECG Rate: 62 Initial ECG Rhythm: Normal Sinus (IVCD) Initial ECG Comparisson: Changed (FROM 2011--NOW WITH IVCD) Diagnostic Imaging Comments CXR--POOR INSPIRATION, BIBASILAR ATELECTASIS, PENDING RADIOLOGIST REVIEW CT HEAD--NO ACUTE PROCESS, PER [facility] RADIOLOGIST VIA PHONE AT 2220, AND LATER VIA FAX Reviewed: Reviewed by Me Departure Communication (Admissions) 2313--SPOKE WITH DR. ARPAN TRACY, WILL SEND PT HOME AND HE WILL SEE PT IN OFFICE ON SUNDAY Impression Primary Impression: Leukocytosis Additional Impression: HTN (hypertension) Disposition: 01 HOME, SELF-CARE Condition: Stable Departure-Patient Inst. Decision time for Depature: 23:15 Referrals: ARPAN TRACY MD (PCP/Family) Primary Care Physician Patient Instructions: DASH Diet, High Blood Pressure (DC), White Blood Cell Count Differential Test Add. Discharge Instructions: CONTINUE YOUR REGULAR MEDICATIONS PRESCRIBED LOTS OF FLUIDS TYLENOL AND MOTRIN NEEDED FOR HEADACHE FOLLOW UP WITH DR. TRACY ON SUNDAY--CALL FIRST THING ON SUNDAY MORNING FOR APPOINTMENT TIME RETURN TO ER IF YOUR SYMPTOMS WORSEN OR IF YOU DEVELOP FEVER, COUGH, SHORTNESS OF BREATH, OR ANY NEW SYMPTOMS All discharge instructions reviewed with patient and/or family. Voiced understanding. KRISTIN MALDONADO DO Mar 04, 2021 23:17
[2021-03-04 23:58] VITALS: BP 151/81
--- NOTE | 2021-03-05 07:30 | Diagnostic Imaging Report ---
PROCEDURE: CT head wo r/o stroke. TECHNIQUE: Multiple contiguous axial images were obtained through the brain without the use of intravenous contrast. Auto Exposure Controls were utilized during the CT exam to meet ALARA standards for radiation dose reduction. INDICATION: Headache and dizziness. Neurological deficits. Evaluate for stroke. Comparison made with MRI of the brain from September 09, 2015. FINDINGS: There is age-related global volume loss. There are background chronic microvascular changes present within the subcortical and periventricular white matter. There are no findings to suggest new territorial loss of solis-white differentiation or evidence of low density within the basal ganglia or within the cintia. There is no acute hemorrhage. There is no mass effect. There is no hydrocephalus. There is no abnormal extra-axial fluid collection. The basilar cisterns appear patent. There are operative changes of a prior right-sided mastoidectomy. The left mastoids are clear. There is moderate mucosal thickening within the right maxillary sinus with prior surgical changes of a right-sided maxillary antrostomy. IMPRESSION: 1. Age-related global volume loss with background microvascular changes within the white matter. There are no CT findings of new loss of solis-white differentiation or abnormal low density in the basal ganglia or cintia. 2. No hemorrhage, mass effect or hydrocephalus 3. Prior operative changes of right mastoidectomy and right maxillary sinus antrostomy. There is moderate mucosal thickening in the right maxillary sinus. 4. I agree with the preliminary [facility] report. Dictated by: Dictated on workstation # [id number]
--- NOTE | 2021-03-05 08:11 | Diagnostic Imaging Report ---
INDICATION: Head pain, dizziness FINDINGS: No relevant comparison There is some patchy infiltrates or atelectasis in the lung bases. There is a suboptimal inspiratory volume. Heart size given technique likely within the upper limits of normal. No overt vascular congestion. Upper lobes clear and well expanded. IMPRESSION: Limited inspiratory volume with some bibasilar pulmonary opacities favored to be atelectasis but in the appropriate clinical scenario pneumonia could not be excluded superimposed. Dictated by: Dictated on workstation # [id number]
== END 2021-03-05 00:05 | disposition home or self-care (01) ==
LOC: EDUNIT# 21:11 → ER 21:12
DX: D72.829 Elevated white blood cell count, unspecified (principal); I10 Essential (primary) hypertension; G47.30 Sleep apnea, unspecified; E11.9 Type 2 diabetes mellitus without complications; F32.9 Major depressive disorder, single episode, unspecified; Z87.891 Personal history of nicotine dependence; Z20.822 Contact with and (suspected) exposure to COVID-19; Z79.82 Long term (current) use of aspirin; Z79.84 Long term (current) use of oral hypoglycemic drugs; Z79.899 Other long term (current) drug therapy
CPT/HCPCS: 36415; 70450; 71045; 80053; 81000; 82550; 82553; 83605; 83615; 83735; 83880; 84145; 84443; 84484; 85007; 85027; 85379; 85610; 85652; 85730; 86141; 86308; 87040; 87636; 93005; 93041

== ENCOUNTER 2021-12-20 09:00 | Day surgery (SDC) | payer MEDICARE, OTHER ==
[2021-12-20] VITALS (7 sets, daily range): BP systolic 126–133; BP diastolic 66–76
[~2021-12-20] VITALS: Ht 182.9 cm; Wt 107.8 kg
[2021-12-20 07:35] LABS: HEMATOCRIT 39 % (40-54); HEMOGLOBIN 11.9 g/dL (13.3-17.7); MEAN CORPUSCULAR HEMOGLOBIN 25 pg (25-34); MEAN CORPUSCULAR HGB CONC 31 g/dL (32-36); MEAN CORPUSCULAR VOLUME 81 fL (80-99); MEAN PLATELET VOLUME 10.6 fL (9.0-12.2); PLATELET COUNT 288 10^3/uL (130-400)
[2021-12-20 07:39] LABS: WHITE BLOOD COUNT 53.3 10^3/uL (4.3-11.0)
[2021-12-20 07:45] LABS: ALBUMIN 4.2 GM/DL (3.2-4.5); POTASSIUM 4.6 MMOL/L (3.6-5.0)
[2021-12-20 07:46] LABS: CALCIUM 9.2 MG/DL (8.5-10.1)
[2021-12-20 07:48] LABS: TOTAL PROTEIN 7.2 GM/DL (6.4-8.2)
[2021-12-20 07:50] LABS: BILIRUBIN,TOTAL 0.5 MG/DL (0.1-1.0)
[2021-12-20 07:51] LABS: CREATININE SERUM 1.29 MG/DL (0.60-1.30)
[2021-12-20 07:56] LABS: PROTHROMBIN TIME PATIENT 13.2 SEC (12.2-14.7)
[~2021-12-20 09:00] MED LIST changes: +ACET-2267 PO; +ASPI-1238 PO; +ATOR20TA66 PO; +BIMA2.5D4 OU; +CARV3.122 PO; +DAPA5TAB PO; +DOCU100C37 PO; +DULO30CA49; +DULO60CA59 PO; +FEXO180T84 PO; +FLUT1BLS12 INH; +FURO40TA4 PO; +GABA300C PO; +HEParin (CATH LAB) 2,000 ML IV ONE; +LIDOCAINE 1% INJ 20 ML VIAL ONE; +LISI5TAB20 PO; +METF-399 PO; +MIDAZOLAM 5 MG/5 ML (VERSED) VIAL ONE; +MULT-1136 PO; +NS IV 1000 ML 1,000 ML IV SCH; +NS IV 1000 ML 1,000 ML ONE; +OXYC-556 PO; +RT-ALBUINH IH; +SACU1TAB2 PO; +SPIR25TA5 PO; +TMSL.4C PO; +TRZ50T PO; +diphenhydrAMINE 50 MG/ML INJ (BENADRYL) ONE; +fentaNYL INJ 100 MCG/2 ML AMP ONE
[2021-12-20] MEDS ORDERED: HEParin 1000 UNIT/ML (10ML VIAL) FOR BOLUS ONE (09:04)
[2021-12-20] MEDS ORDERED: ADENOSINE 90 MG/30 ML (ADENOSCAN) VIAL IV ONE (09:08)
--- NOTE | 2021-12-20 09:43 | Cardiac Procedure Note-CS/ASA ---
Pre-Procedure Note Pre-Op Procedure Note H&P Reviewed The H&P was reviewed, patient examined and no changes noted. Date H&P Reviewed: December 20, 2021 Time H&P Reviewed: 08:40 Conscious Sedation Pre-Proced Time 08:40 ASA Score 3 For ASA 3 and 4: Consider anesthesia and medical clearance. Also, for patients with a history of failed moderate sedation consider anesthesia. Airway Lungs Heart ASA score ASA 1: a normal healthy patient ASA 2: a patient with a mild systemic disease (mid diabetes, controlled hypertension, obesity ASA 3: a patient with a severe systemic disease that limits activity (angina, COPD, prior Myocardial infarction) ASA 4: a patient with an incapacitating disease that is a constant threat to life (CHF, renal failure) ASA 5: a moribund patient not expected to survive 24 hrs. (ruptured aneurysm) ASA 6: a declared brain- patient whose organs are being harvested. For emergent operations, add the letter E after the classification Mallampati Classification Grade 2 Sedation Plan Analgesia, Amnesia, Plan communicated to team members, Discussed options with patient/fam, Discussed risks with patient/fam The patient is an appropriate candidate to undergo the planned procedure, sedation, and anesthesia. The patient immediately re-assessed prior to indication. KARISSA NOONAN MD FACP FAC CCDS December 20, 2021 09:43
--- NOTE | 2021-12-20 09:44 | CARDIAC CATHETERIZATION ---
DATE OF SERVICE: 12/20/2021 CARDIAC CATHETERIZATION REPORT The patient is a 76-year-old gentleman who was recently diagnosed with dilated cardiomyopathy after he had presented with decompensated congestive heart failure. This has been treated. Today, he underwent cardiac catheterization for coronary evaluation. Informed consent was obtained. DESCRIPTION OF PROCEDURE: He was brought to the cardiac catheterization laboratory in a fasting state. Right groin was prepared and draped in the usual sterile fashion. Lidocaine 1% was used for local anesthesia. Modified Seldinger technique was used to advance a 5-Central [place] sheath in the right femoral artery. A 5-[place] JL3.5 catheter was used for left coronary angiography, 5-Central [place] JR4 catheter was used for right coronary angiography, 5-Central [place] pigtail catheter was used for left heart catheterization and left ventricular angiography. Subsequently, we proceeded with fractional flow reserve measurement across the ostial left main, which appeared to have considerable stenosis upon angiography. FRACTIONAL FLOW RESERVE MEASUREMENT IN THE LEFT MAIN: The sheath was removed over a wire for a 6-[place] sheath. We gave 5000 units of intravenous heparin. We used a 6-[place] JL4 guide catheter and advanced the pressure wire across the lesion in the left main and the tip of the wire was placed in the proximal left anterior descending. Adenosine was infused at 140 mcg per kilogram per minute. Fractional flow reserve of 0.77 was obtained in less than 1 minute. The wire was removed. Angiography indicated that there has been no change in the coronary status from wire introduction. The guide catheter was removed. Angiography of the right femoral artery had been carried out through the sheath prior to coronary angiography. Mynx was used to achieve hemostasis. He tolerated the procedure well. HEMODYNAMICS: Left ventricular end-diastolic pressure following coronary angiography was 18 mmHg. There is no significant pressure gradient on pullback across the aortic valve. Ascending aortic pressure was 109/55 with mean of 76 mmHg. CORONARY ANGIOGRAPHY: Left main coronary artery exhibits approximately 80% ostial stenosis. Fractional flow reserve across the lesion is 0.77. The left anterior descending and the left circumflex arteries have diffuse mild to moderate plaque. Right coronary artery is large and dominant and has approximately 50% ostial and proximal stenoses. LEFT VENTRICULAR ANGIOGRAPHY: Left ventricular angiography was carried out in the right anterior oblique projection. Global left ventricular systolic function is moderately impaired. There is moderate global hypokinesis. Left ventricular ejection fraction approximately 40%. DISCUSSION AND RECOMMENDATIONS: Based on the results of the study, left main stenting may be a good option. We have contacted Dr. Madrigal at [facility] where surgical backup is available. We will discuss with the patient and his family and proceed accordingly. Job ID: [id number] DocumentID: [id number] Dictated Date: 12/20/2021 09:28:51 Lumber Bearer Date: 12/20/2021 09:43:26 Dictated By: KARISSA NOONAN MD, MA, FACP, FACC,
[2021-12-20] MEDS ORDERED: oxyCODONE/APAP 10/325MG (PERCOCET 10) TABLET PO PRN (09:45)
[2021-12-20] MEDS ORDERED: ACETAMINOPHEN 500 MG TAB (TYLENOL) PO PRN (09:45)
[2021-12-20] MEDS ORDERED: PATIENT MAY USE OWN MEDS, ALL PO SCH (09:45)
[2021-12-20] MEDS ORDERED: NS IV 1000 ML 1,000 ML IV SCH (09:45)
--- NOTE | 2021-12-20 09:56 | Cardiology Discharge Summary ---
Diagnosis/Chief Complaint Date of Admission 12/20/21 Date of Discharge 12/20/21 Final/Discharge Diagnosis Dilated cardiomyopathy and acute HFrEF (diagnosed in November 2021) - Echocardiogram of 11-24-[address] Calloway showed mod concentric hypertrophy. LVEF 35-40%. Mild global hypokinesis. Grade 2 diastolic dysfunction. Severely dilated RV. LA severe dilated. RA mildly dilated. Mild aortic valve sclerosis. Mildly calcified mitral valve with mild to mod regurg. Mild TR. PASP 62 mmHg - Card cath on 12/20/21: 80% ostial/prox LMCA stenosis, diffuse mild to mod disease of LAD and LCX, 50% ostial and prox stenoses of a dominant RCA, LVEDP 18 mmHg, LVEF 40%, mod global hypokinesis of LV CLL - managed by pcp CECY - CPAP tx HLD - managed by PCP DM 2 - managed by PCP HTN - controlled Chief Complaint/HPI Chief Complaint/HPI 76 yo man admitted in November 2021 with new onset of decompensated, acute, systolic CHF. Treated. Now clinically stable. Cath today shows LMCA stenosis (severe). Discussed with patient and with Dr Madrigal at [facility]. Plan transfer for LMCA intervention. Discharge Summary Hospital Course Pending Labs Laboratory Tests 12/20/21 07:32: White Blood Count 53.3, Red Blood Count 4.81, Hemoglobin 11.9, Hematocrit 39, Mean Corpuscular Volume 81, Mean Corpuscular Hemoglobin 25, Mean Corpuscular Hemoglobin Concent 31, Red Cell Distribution Width 16.9, Platelet Count 288, Mean Platelet Volume 10.6, Prothrombin Time 13.2, INR Comment 1.0, Activated Partial Thromboplast Time 27, Sodium Level 136, Potassium Level 4.6, Chloride Level 101, Carbon Dioxide Level 22, Anion Gap 13, Blood Urea Nitrogen 17, Creatinine 1.29, Estimat Glomerular Filtration Rate 58, BUN/Creatinine Ratio 13, Glucose Level 127, Calcium Level 9.2, Corrected Calcium 9.0, Total Bilirubin 0.5, Aspartate Amino Transf (AST/SGOT) 29, Alanine Aminotransferase (ALT/SGPT) 16, Alkaline Phosphatase 92, Total Protein 7.2, Albumin 4.2, Triglycerides Level 47, Cholesterol Level 107, LDL Cholesterol Direct 60, VLDL Cholesterol 9, HDL Cholesterol 36 Discussion & Recommendations Home Medications Reviewed patient Home Medication Reconciliation performed by pharmacy medication reconciliations accelerator technician and/or nursing. Patients Allergies have been reviewed. Discharge Home Medications: Reviewed and agree with Discharge Medication list on patient's Discharge Instruction sheet KARISSA NOONAN MD FACP FAC CCDS December 20, 2021 09:56
[2021-12-20] MEDS ORDERED: CLOPIDOGREL 75 MG (PLAVIX) TABLET PO NR (10:45)
[2021-12-20] MEDS ORDERED: NON-FORMULARY MEDICATION 1 EA EA (Fluticasone Propion/Salmeterol (Fluticasone-Salmeterol 2 INH SCH (21:00)
[2021-12-20] MEDS ORDERED: SACUBITRIL/VALSARTAN 24/26 MG (ENTRESTO) TABLET PO SCH (21:00)
[2021-12-20] MEDS ORDERED: TAMSULOSIN 0.4 MG (FLOMAX) CAP PO SCH (21:00)
[2021-12-20] MEDS ORDERED: GABAPENTIN 300 MG (NEURONTIN) CAP PO SCH (21:00)
[2021-12-20] MEDS ORDERED: NON-FORMULARY MEDICATION 1 EA EA (Bimatoprost (Lumigan) 1 DROP) OU SCH (21:00)
[2021-12-20] MEDS ORDERED: ASPIRIN E.C. 81 MG (ECOTRIN) TAB PO SCH (21:00)
[2021-12-21] MEDS ORDERED: MULTIVIT W/MINERALS TAB (THERAGRAN M) PO SCH (07:00)
[2021-12-21] MEDS ORDERED: NON-FORMULARY MEDICATION 1 EA EA (Dapagliflozin Propanediol (Farxiga) 5 MG) PO SCH (09:00)
[2021-12-21] MEDS ORDERED: FLUoxetine HCL 20 MG (PROzac) CAP PO SCH (09:00)
[2021-12-21] MEDS ORDERED: SPIRONOLACTONE 25 MG (ALDACTONE) TAB PO SCH (09:00)
[2021-12-21] MEDS ORDERED: CLOPIDOGREL 75 MG (PLAVIX) TABLET PO SCH (09:00)
[2021-12-21] MEDS ORDERED: FUROSEMIDE 40 MG (LASIX) TAB PO SCH (09:00)
[2021-12-21] MEDS ORDERED: DULoxetine 30 MG (CYMBALTA) CAP PO SCH (09:00)
[2021-12-21] MEDS ORDERED: NON-FORMULARY MEDICATION 1 EA EA (Fexofenadine HCl (Allegra Allergy) 180 MG) PO SCH (09:00)
[2021-12-21] MEDS ORDERED: LORATADINE (CLARITIN) 10 MG TAB PO SCH (09:00)
[2021-12-21] MEDS ORDERED: NON-FORMULARY MEDICATION 1 EA EA (Multivitamin 1 EACH) PO SCH (09:00)
[2021-12-21] MEDS ORDERED: NON-FORMULARY MEDICATION 1 EA EA (Duloxetine HCl 60 MG) PO SCH (09:00)
== END 2021-12-20 11:15 | disposition short-term general hospital (02) ==
LOC: CATH 09:00 → CSD 10:08 → CATH 11:15
PROVIDERS: ATTEND Internal Medicine Cardiovascular Disease
DX: I25.10 Atherosclerotic heart disease of native coronary artery without angina pectoris (principal); I42.0 Dilated cardiomyopathy; I27.20 Pulmonary hypertension, unspecified; G47.33 Obstructive sleep apnea (adult) (pediatric); E78.5 Hyperlipidemia, unspecified; E11.9 Type 2 diabetes mellitus without complications; I11.0 Hypertensive heart disease with heart failure; I50.20 Unspecified systolic (congestive) heart failure
CPT/HCPCS: 80053; 80061; 85027; 85610; 85730; 87081; 93005; 93458; 93571; C1760; C1769; C1887; C1894 ×2; 36415

== ENCOUNTER → 2021-12-24 | Outpatient (CLI) | payer MEDICARE, OTHER ==
[~2021-12-24] MED LIST changes: -HEParin (CATH LAB) 2,000 ML IV ONE; -LIDOCAINE 1% INJ 20 ML VIAL ONE; -MIDAZOLAM 5 MG/5 ML (VERSED) VIAL ONE; -NS IV 1000 ML 1,000 ML IV SCH; -NS IV 1000 ML 1,000 ML ONE; -diphenhydrAMINE 50 MG/ML INJ (BENADRYL) ONE; -fentaNYL INJ 100 MCG/2 ML AMP ONE
[2021-12-24 12:27] LABS: BASOPHILS % (AUTO) 0 % (0-10); EOSINOPHILS # (AUTO) 0.3 10^3/uL (0.0-0.3); EOSINOPHILS % (AUTO) 2 % (0-10); HEMATOCRIT 36 % (40-54); HEMOGLOBIN 11.3 g/dL (13.3-17.7); LYMPHOCYTES # (AUTO) 9.5 10^3/uL (1.0-4.0); LYMPHOCYTES % (AUTO) 53 % (12-44); MEAN CORPUSCULAR HEMOGLOBIN 25 pg (25-34); MEAN CORPUSCULAR HGB CONC 32 g/dL (32-36); MEAN CORPUSCULAR VOLUME 79 fL (80-99); MEAN PLATELET VOLUME 11.4 fL (9.0-12.2); MONOCYTES % (AUTO) 28 % (0-12); NEUTROPHILS % (AUTO) 17 % (42-75); PLATELET COUNT 217 10^3/uL (130-400); WHITE BLOOD COUNT 17.8 10^3/uL (4.3-11.0)
[2021-12-24 12:45] LABS: ALBUMIN 3.8 GM/DL (3.2-4.5); BILIRUBIN,TOTAL 0.4 MG/DL (0.1-1.0); CALCIUM 8.4 MG/DL (8.5-10.1); CREATININE SERUM 1.2 MG/DL (0.60-1.30); POTASSIUM 4.5 MMOL/L (3.6-5.0); TOTAL PROTEIN 6.4 GM/DL (6.4-8.2)
--- NOTE | 2021-12-24 12:53 | Diagnostic Imaging Report ---
EXAM: CHEST PA/LAT (2 VIEW) INDICATION: Dyspnea. Cough. Fatigue. COMPARISON: CTA chest 11/25/2021. FINDINGS: Normal heart size and central pulmonary vascularity. No focal pulmonary opacity. No pleural effusion or pneumothorax. Chronic right rib fractures. No acute osseous findings IMPRESSION: No acute cardiopulmonary findings. Report given to Monica Barrera APRN, at 12:52 PM 12/24/2021/cb Dictated by: Dictated on workstation # [id number]
[2021-12-24 13:04] LABS: ATYPICAL LYMPHOCYTES 21 %; BAND NEUTROPHILS 1 %; EOSINOPHILS % (MANUAL) 1 %; LYMPHOCYTES % (MANUAL) 47 %; MONOCYTES % (MANUAL) 15 %; NEUTROPHILS % (MANUAL) 15 %
[2021-12-24 13:05] LABS: ANISOCYTOSIS SLIGHT; MICROCYTOSIS SLIGHT; POIKILOCYTOSIS SLIGHT; SPHEROCYTES SLIGHT
== END ==
LOC: RAD 12:03
PROVIDERS: ATTEND Nurse Practitioner Family
DX: R05.9 Cough, unspecified (principal); R06.02 Shortness of breath; R53.83 Other fatigue
CPT/HCPCS: 36415; 71046; 80053; 83880; 85007; 85027

== ENCOUNTER 2022-02-07 09:59 | Outpatient (RCR) | payer MEDICARE, OTHER | END 2022-02-09 | disposition home or self-care (01) | PROVIDERS: ATTEND Family Medicine Sports Medicine | DX: M79.641 Pain in right hand (principal); M25.531 Pain in right wrist ==

== ENCOUNTER 2022-03-27 12:01 | Outpatient (CLI) | payer MEDICARE, OTHER | END 2022-03-27 12:18 | LOC: SLEEP 12:01 | PROVIDERS: ATTEND Otolaryngology Otolaryngology/Facial Plastic Surgery | DX: G47.33 Obstructive sleep apnea (adult) (pediatric) (principal) | CPT/HCPCS: G0399 ==

== ENCOUNTER → 2022-06-13 | Outpatient (CLI) | payer MEDICARE, OTHER ==
[~2022-06-13] MED LIST changes: +ALBU8.5H6 IH; -RT-ALBUINH IH
== END ==
LOC: CARD 08:51
PROVIDERS: ATTEND Internal Medicine Cardiovascular Disease
DX: I51.7 Cardiomegaly (principal); I50.22 Chronic systolic (congestive) heart failure; I34.81 Nonrheumatic mitral (valve) annulus calcification
CPT/HCPCS: 93306

== ENCOUNTER 2022-12-13 10:09 | Emergency (ER) | payer MEDICARE, OTHER ==
[2022-12-13] MEDS ORDERED: KETOROLAC 15 MG/ML VIAL ONE (10:40)
[2022-12-13 11:13] LABS: ALBUMIN 3.6 GM/DL (3.2-4.5); CHLORIDE 101 MMOL/L (98-107); SODIUM 133 MMOL/L (135-145)
[2022-12-13 11:15] LABS: CALCIUM 8.9 MG/DL (8.5-10.1)
--- NOTE | 2022-12-13 11:15 | Diagnostic Imaging Report ---
EXAMINATION: Chest 1 view HISTORY: Chest pain. COMPARISON: 12/24/2021. FINDINGS: The lung volumes are normal. No focal consolidation is seen. Small right-sided pleural effusion is seen. No pneumothorax. The cardiomediastinal silhouette is normal in size and contour. There is calcified aortic atherosclerotic plaque. No acute osseous abnormality is seen. IMPRESSION: 1. Right-sided pleural effusion. Dictated by: Dictated on workstation # [id number]
[2022-12-13 11:16] LABS: GLUCOSE 123 MG/DL (70-105)
[2022-12-13 11:17] LABS: CARBON DIOXIDE 21 MMOL/L (21-32)
[2022-12-13 11:18] LABS: BASOPHILS # (AUTO) 0.1 10^3/uL (0.0-0.1); BASOPHILS % (AUTO) 0 % (0-10); EOSINOPHILS # (AUTO) 0.5 10^3/uL (0.0-0.3); EOSINOPHILS % (AUTO) 1 % (0-10); HEMATOCRIT 36 % (40-54); HEMOGLOBIN 11.3 g/dL (13.3-17.7); LYMPHOCYTES # (AUTO) 19.8 10^3/uL (1.0-4.0); LYMPHOCYTES % (AUTO) 53 % (12-44); MEAN CORPUSCULAR HEMOGLOBIN 25 pg (25-34); MEAN CORPUSCULAR HGB CONC 32 g/dL (32-36); MEAN CORPUSCULAR VOLUME 80 fL (80-99); MEAN PLATELET VOLUME 9.9 fL (9.0-12.2); MONOCYTES # (AUTO) 10.9 10^3/uL (0.0-1.0); MONOCYTES % (AUTO) 29 % (0-12); NEUTROPHILS # (AUTO) 5.9 10^3/uL (1.8-7.8); NEUTROPHILS % (AUTO) 16 % (42-75); PLATELET COUNT 309 10^3/uL (130-400); WHITE BLOOD COUNT 37.3 10^3/uL (4.3-11.0)
[2022-12-13 11:19] LABS: ALKALINE PHOSPHATASE 105 U/L (40-136); CREATININE SERUM 0.89 MG/DL (0.60-1.30); GFR ESTIMATED 89
[2022-12-13 11:21] LABS: BUN/CREATININE RATIO 21
[2022-12-13 11:22] LABS: ALANINE AMINOTRANSFERASE 23 U/L (0-55)
[2022-12-13] MEDS ORDERED: KETOROLAC 15 MG/ML VIAL IVP ONE (11:30)
--- NOTE | 2022-12-13 11:33 | ED Chest Pain ---
General Chief Complaint: Chest Pain Stated Complaint: CHEST/BACK PAINS Nursing Triage Note: PT AMB TO [facility] 4 WITH C/O CP THAT RADIATES TO BILAT SHOULDERS FOR 2-3 DAYS. PT SENT FROM DR SCALES OFFICE Source: patient Exam Limitations: no limitations History of Present Illness Date Seen by Provider: December 13, 2022 Time Seen by Provider: 10:28 Initial Comments 12/13/2022@1028 This 77-year-old patient is here with 2 to 3 days of left-sided chest pain that he reports is centered on the left mid chest and radiates directly through to his back. He has had some intermittent pain around his shoulders and back prior that he attributed to arthritis. Does have history of previous heart cath but denies previous stents or heart surgery. He is on a variety of meds for hypertension, cholesterol, diabetes and heart stuff but denies being on a blood thinner. Does take aspirin daily and did take an aspirin this morning. Has not taken anything else for pain today but has tried some acetaminophen and states that did not help much. Denies nausea, vomiting or diarrhea. Denies abdominal pain, leg swelling, weakness or sweating. 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 SL TAPE MAKING MACHINE OPERATOR: No Associated Symptoms: No back pain, No nausea/vomiting; shortness of breath; No weakness Allergies and Home Medications Allergies Coded Allergies: NKANo Known Allergies (Verified Allergy, Unknown, 05/15/07) Patient Home Medication List Home Medication List Reviewed: Yes Acetaminophen (Tylenol Extra Strength) 500 Mg Tablet, 1,000 MG PO Q8H PRN for PAIN-MILD (1-4), (Reported) Entered as Reported by: BEN SEVERINO on 11/24/21 1055 Aspirin (Aspirin EC) 81 Mg Tablet., 81 MG PO HS, (Reported) Entered as Reported by: BEN SEVERINO on 11/24/21 1055 Atorvastatin Calcium (Atorvastatin Calcium) 20 Mg Tablet, 20 MG PO HS, (Reported) Entered as Reported by: SARAN CARRERA on 03/04/212127 Bimatoprost (Lumigan) 2.5 Ml Drops, 1 DROP OU HS, (Reported) Entered as Reported by: SARAN CARRERA on 03/04/212127 Carvedilol (Carvedilol) 3.125 Mg Tablet, 3.125 MG PO BID, (Reported) Entered as Reported by: JOSEFINA SMALL on 12/20/21809 Dapagliflozin Propanediol (Farxiga) 5 Mg Tablet, 5 MG PO DAILY, (Reported) Entered as Reported by: JOSEFINA SMALL on 12/20/21809 Duloxetine HCl (Duloxetine HCl) 60 Mg Capsule.dr, 60 MG PO DAILY, (Reported) Entered as Reported by: BEN SEVERINO on 11/24/211054 Fexofenadine HCl (Mayra Allergy) 180 Mg Tablet, 180 MG PO DAILY, (Reported) Entered as Reported by: BEN SEVERINO on 11/24/211054 Fluticasone Propion/Salmeterol (Fluticasone-Salmeterol 250-50) 1 Each Blst.w.dev, 1 PUFF INH BID, (Reported) Entered as Reported by: BEN SEVERINO on 11/24/211054 Furosemide (Furosemide) 40 Mg Tablet, 40 MG PO DAILY, (Reported) Entered as Reported by: JOSEFINA SMALL on 12/20/21809 Gabapentin (Neurontin) 300 Mg Capsule, 900 MG PO BID, (Reported) Entered as Reported by: BEN SEVERINO on 11/24/211054 Metformin HCl (Metformin HCl) 1,000 Mg Tablet, 500 MG PO BID, (Reported) Entered as Reported by: BEN SEVERINO on 11/24/211054 Multivitamin (Multivitamin) 1 Each Tablet, 1 EACH PO DAILY, (Reported) Entered as Reported by: BEN SEVERINO on 11/24/211054 Oxycodone HCl/Acetaminophen (Oxycodone-Acetaminophen 10-325) 1 Each Tablet, 1 EA PO Q12H PRN for PAIN-MODERATE (5-7), (Reported) Entered as Reported by: SARAN CARRERA on 03/04/212127 Sacubitril/Valsartan (Entresto 24 mg-26 mg Tablet) 24 Mg-26 Mg Tablet, 1 TAB PO BID, (Reported) Entered as Reported by: JOSEFINA SMALL on 12/20/21809 Spironolactone (Spironolactone) 25 Mg Tablet, 25 MG PO DAILY, (Reported) Entered as Reported by: JOSEFINA SMALL on 12/20/21 0810 Tamsulosin HCl (Flomax) 0.4 Mg Cap, 0.8 MG PO HS, (Reported) Entered as Reported by: BEN SEVERINO on 11/24/21 1055 Trazodone HCl (Trazodone HCl) 50 Mg Tablet, 50-100 MG PO HS PRN for SLEEP, (Reported) Entered as Reported by: BEN SEVERINO on 11/24/21 1055 Review of Systems Review of Systems Constitutional: see HPI; No chills, No fever EENTM: No Nose Congestion Respiratory: Denies Cough; Shortness of Air Cardiovascular: Chest Pain; Denies Edema Gastrointestinal: Denies Nausea, Denies Vomiting Musculoskeletal: back pain; No muscle pain Skin: No change in color, No lesions Psychiatric/Neurological: No Symptoms Reported Past Mgktcnt-Xmjpsa-Fhnkpc Hx Patient Social History Tobacco Use?: No Use of E-Cig and/or Vaping dev: No Substance use?: No Alcohol Use?: No Pt feels they are or have been: No Immunizations Up To Date First/Initial COVID19 Vaccinat: 10/31 Second COVID19 Vaccination Burke: 12/01 Seasonal Allergies Seasonal Allergies: Yes Past Medical History Surgery/Hospitalization HX: COLONOSCOPIES/POLYPECTOMY--LAST ONE 2016RIGHT ROTATOR CUFF SURGERY 2018LEFT KNEE SCOPE 11/2005LEFT KNEE REPLACEMENT 05/2007RIGHT KNEE REPLACEMENTLEFT HIP REPLACEMENT ILATERAL CARPAL TUNNEL SURGERYGASTRIC BYPASS Surgeries: Yes (RIGHT MASTOIDECTOMY;BILAT TKR;BILAT CTR;LEFT HIP REPLACED; GASTRIC BYPASS) Abdominal, Adenoidectomy, Joint Replacement, Orthopedic, Tonsillectomy Respiratory: Yes (HX OF PE IN 1989) Pulmonary Embolism, Sleep Apnea Currently Using CPAP: Yes Cardiac: Yes Cardiomyopathy, High Cholesterol, Hypertension Neurological: Yes (NEUROPATHY BILAT FOREARMS AND HANDS) Neuropathy Reproductive Disorders: No Genitourinary: Yes Benign Prostatic Hyperpl Gastrointestinal: Yes (GASTRIC BYPASS) Diverticulosis, Hemorrhoids, Polyps Musculoskeletal: Yes (CHRONIC NECK/BACK/GEN.PAIN;MULT ORTHO SURGERIES;RIB FX'S;R SCAPULA ACROMION) Arthritis, Fractures Endocrine: Yes (NEVER CHECKS BLOOD SUGAR) Diabetes, Non-Insulin dep HEENT: No Cancer: Yes Leukemia Psychosocial: Yes Anxiety, Depression Integumentary: No Blood Disorders: No Family Medical History Reviewed Nursing Family Hx ADDITIONAL PMH: CHRONIC BACK/NECK/GENERALIZED PAIN RIB FRACTURES FRACTURED SCAPULA/ACROMION Physical Exam Vital Signs Capillary Refill : Height, Weight, BMI Height: 6'2.00" Weight: 245lbs. 0.0oz. 111.126144sr; 32.22 BMI Method:Stated General Appearance: No Apparent Distress, WD/WN HEENT: PERRL/EOMI, Pharynx Normal Neck: Non Tender, Supple Respiratory: Lungs Clear, Normal Breath Sounds Cardiovascular: Regular Rate, Rhythm, No Murmur Gastrointestinal: Non Tender, Soft Extremity: Normal Range of Motion, Non Tender, No Calf Tenderness, No Pedal Edema Neurologic/Psychiatric: Alert, Oriented x3 Skin: Normal Color, Warm/Dry Progress/Results/Core Measures Results/Orders Lab Results Laboratory Tests Test 12/13/22 10:25 12/13/22 10:37 Range/Units Sodium Level 133 L 135-145 MMOL/L Potassium Level 5.1 H 3.6-5.0 MMOL/L Chloride Level 101 98-107 MMOL/L Carbon Dioxide Level 21 21-32 MMOL/L Anion Gap 11 5-14 MMOL/L Blood Urea Nitrogen 19 H 7-18 MG/DL Creatinine 0.89 0.60-1.30 MG/DL Estimat Glomerular Filtration Rate 89 BUN/Creatinine Ratio 21 Glucose Level 123 H 70-105 MG/DL Calcium Level 8.9 8.5-10.1 MG/DL Corrected Calcium 9.2 8.5-10.1 MG/DL Total Bilirubin 0.3 0.1-1.0 MG/DL Aspartate Amino Transf (AST/SGOT) 31 5-34 U/L Alanine Aminotransferase (ALT/SGPT) 23 0-55 U/L Alkaline Phosphatase 105 40-136 U/L Myoglobin 32.3 10.0-92.0 NG/ML Troponin I < 0.028 <0.028 NG/ML C-Reactive Protein High Sensitivity 1.70 H 0.00-0.50 MG/DL Total Protein 7.0 6.4-8.2 GM/DL Albumin 3.6 3.2-4.5 GM/DL White Blood Count 37.3 *H 4.3-11.0 10^3/uL Red Blood Count 4.48 4.30-5.52 10^6/uL Hemoglobin 11.3 L 13.3-17.7 g/dL Hematocrit 36 L 40-54 % Mean Corpuscular Volume 80 80-99 fL Mean Corpuscular Hemoglobin 25 25-34 pg Mean Corpuscular Hemoglobin Concent 32 32-36 g/dL Red Cell Distribution Width 18.4 H 10.0-14.5 % Platelet Count 309 130-400 10^3/uL Mean Platelet Volume 9.9 9.0-12.2 fL Immature Granulocyte % (Auto) 0 % Neutrophils (%) (Auto) 16 L 42-75 % Lymphocytes (%) (Auto) 53 H 12-44 % Monocytes (%) (Auto) 29 H 0-12 % Eosinophils (%) (Auto) 1 0-10 % Basophils (%) (Auto) 0 0-10 % Neutrophils # (Auto) 5.9 1.8-7.8 10^3/uL Lymphocytes # (Auto) 19.8 H 1.0-4.0 10^3/uL Monocytes # (Auto) 10.9 H 0.0-1.0 10^3/uL Eosinophils # (Auto) 0.5 H 0.0-0.3 10^3/uL Basophils # (Auto) 0.1 0.0-0.1 10^3/uL Immature Granulocyte # (Auto) 0.1 0.0-0.1 10^3/uL My Orders Orders - ANUP PACHECO MD Cbc With Automated Diff (12/13/22 10:37) Comprehensive Metabolic Panel (12/13/22 10:37) Troponin I [place] (12/13/22 10:37) Myoglobin Serum (12/13/22 10:37) Hs C Reactive Protein (12/13/22 10:37) Manual Differential (12/13/22 10:37) Ketorolac Injection (Toradol Injection) (12/13/22 11:30) Ct Angio Chest W (R/O Pe) (12/13/22 11:44) Iohexol Injection (Omnipaque 350 Mg/Ml 1 (12/13/22 12:00) Received Contrast (Hold Metformin- Contr (12/13/22 12:00) Ns (Ivpb) (Sodium Chloride 0.9% Ivpb Bag (12/13/22 12:00) Medications Given in ED Current Medications Medications Dose Ordered Sig/Octavia Route Start Time Stop Time Status Last Admin Dose Admin Iohexol 100 ml ONCE ONCE IV 12/13/22 12:00 12/13/22 12:01 DC 12/13/22 11:52 80 ML Ketorolac Tromethamine 15 mg ONCE ONCE IVP 12/13/22 11:30 12/13/22 11:31 DC 12/13/22 10:42 15 MG Sodium Chloride 100 ml ONCE ONCE IV 12/13/22 12:00 12/13/22 12:01 DC 12/13/22 11:52 80 ML Blood Pressure Mean: 99 Progress Progress Note : Progress Note Given his complaint of chest pain, we will initiate labs for chest pain protocol. This would include CBC, CMP, troponin, myoglobin and I will also check CRP. No ASA at this time as patient has already taken this this morning. Differential diagnosis includes cardiac event, chest wall pain, pneumonia 1115: CBC results noted and patient has grossly elevated white cell count with lymphocyte predominance and slightly low but near normal hemoglobin. Records review does show patient does have history of leukemia. Chemistries are pending. Given his history of leukemia and the chest pain, we will pursue CT of the chest likely angiogram to rule out pulmonary embolism given his abnormal blood counts and risk of PE but this will also evaluate for lymphoma as the cause of pain. I did review chest x-ray on machine and it does not show significant abnormality on my interpretation although there may be small right pleural effusion on my interpretation. 1135: Radiology does report right pleural effusion but otherwise no significant abnormalities on chest x-ray. We are still pending chemistry. Patient did receive Toradol 15 mg IV for pain. Monitor patient. Chart review as systems are back up now show heart cath procedure from last year with summary below: HEMODYNAMICS: Left ventricular end-diastolic pressure following coronary angiography was 18 mmHg. There is no significant pressure gradient on pullback across the aortic valve. Ascending aortic pressure was 109/55 with mean of 76 mmHg. CORONARY ANGIOGRAPHY: Left main coronary artery exhibits approximately 80% ostial stenosis. Fractional flow reserve across the lesion is 0.77. The left anterior descending and the left circumflex arteries have diffuse mild to moderate plaque. Right coronary artery is large and dominant and has approximately 50% ostial and proximal stenoses. LEFT VENTRICULAR ANGIOGRAPHY: Left ventricular angiography was carried out in the right anterior oblique projection. Global left ventricular systolic function is moderately impaired. There is moderate global hypokinesis. Left ventricular ejection fraction approximately 40%. DISCUSSION AND RECOMMENDATIONS: Based on the results of the study, left main stenting may be a good option. We have contacted Dr. Madrigal at [facility] where surgical backup is available. We will discuss with the patient and his family and proceed accordingly. Job ID: [id number] DocumentID: [id number] Dictated Date: 12/20/2021 09:28:51 Underwriting Sales Representative Date: 12/20/2021 09:43:26 Dictated By: KARISSA NOONAN MD, MA, FACP, FACC, Patient reports that he does not have any stent in place. Monitor patient. 1214: CT angiogram of the chest is complete. I do see right pleural effusion but do not see any evidence of pulmonary embolism on my interpretation. Pending radiology review. Monitor patient. 1320: Patient is feeling a little better. CMP reviewed and no acute findings noted. Troponin is negative. Myoglobin is negative. I did review previous CBC and he does have white count ranging from 17-53,000. 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 He also follows with Dr. Horton. There is no pulmonary embolism. Radiology report reviewed and he does have some lymphadenopathy as well as splenic congestion. I did discuss this with the patient and he will follow-up with his oncologist. He will call them today. I have electronically sent the films to . I will send a copy of the chart to Dr. Horton. Patient feels much more comfortable currently and feels comfortable going home. We did further discuss his heart cath results. He states that he did go to [place] and was seen over there and they had another heart cath done at that time which did not show any significant blockage and no indication for stenting or CABG. 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 I did discuss at length with the patient regarding return precautions. Again he will talk with his oncologist and his primary care doctor. Discharged home with return preca utions. Patient verbalized understanding instructions and agreement with plan. He will increase his Tylenol arthritis to 4 times a day from 1 time a day and minimally use ibuprofen as needed. Initial ECG Impression Date: December 13, 2022 Initial ECG Impression Time: 10:32 Initial ECG Rate: 65 Comment Sinus rhythm with right bundle branch block. Left axis deviation. No evidence of ST elevation NH. Few PVCs noted. Interpreted by me. Diagnostic Imaging Diagonstic Imaging: Xray Plain Films/CT/US/NM/MRI: chest Comments [facility], [place] NAME: JORDANA PIERCE [facility] REC#: [id number] PT STATUS: REG ER : 1945 PHYSICIAN: VIPUL PRESCOTT MD ADMIT DATE: 12/13/22/ER Signed Date of Exam:12/13/22 CHEST 1 VIEW, AP/PA ONLY EXAMINATION: Chest 1 view HISTORY: Chest pain. COMPARISON: 12/24/2021. FINDINGS: The lung volumes are normal. No focal consolidation is seen. Small right-sided pleural effusion is seen. No pneumothorax. The cardiomediastinal silhouette is normal in size and contour. There is calcified aortic atherosclerotic plaque. No acute osseous abnormality is seen. IMPRESSION: 1. Right-sided pleural effusion. Dictated by: Dictated on workstation # [id number] Dict: 12/13/22 1112 Trans: 12/13/22 1115 [facility] [id number] Interpreted by: MILAGROS WRIGHT DO Electronically signed by: MILAGROS WRIGHT DO 12/13/22 1115 Diagonstic Imaging: CT Plain Films/CT/US/NM/MRI: chest Comments [facility] [place] NAME: JORDANA PIERCE [facility] REC#: [id number] PT STATUS: REG ER : 1945 PHYSICIAN: ANUP PACHECO MD ADMIT DATE: 12/13/22/ER Signed Date of Exam:12/13/22 CT ANGIO CHEST W (R/O PE) INDICATION: Chest pain radiating into the shoulder, symptoms of 2-3 days. The patient has a history of leukemia. Compared with a CT angiogram chest performed 11/25/2021. FINDINGS: Pulmonary arterial branch is well opacified, widely patent. No filling defect. No PE. The thoracic aorta patent and nonaneurysmal and nonacute. There is a small right pleural effusion unilateral and having decreased in the interim without features of its loculation, today its about 2 cm, previously 4 cm, previous left pleural effusion has since resolved. Prior axillary lymphadenopathy has resolved. There is some mild diffuse thickening of the nicole of the esophagus throughout the chest unchanged from prior. No esophageal obstruction, perforation or visible esophageal focal mass. No consolidating pneumonia. No convincing evidence for pulmonary edema. Some body wall edema mild and decreased in the interim. The visible upper abdomen shows increased splenomegaly partially visualized and at least mild progression of periaortic retroperitoneal adenopathy and central and mesenteric adenopathy. There are postsurgical changes to the stomach. IMPRESSION: 1. No PE or acute aortic disease, decreased right pleural effusion and resolution of prior left pleural effusion. Resolution of left axillary adenopathy and decreased body wall edema. 2. However within the visible upper abdomen there is progressive splenomegaly and at least mild increased partially visualized retroperitoneal and mediastinal adenopathy. 3. Similar low attenuating thickening of the thoracic esophagus diffusely without focal abnormality, obstruction or perforation. Esophagitis could not be excluded. Dictated by: Dictated on workstation # [id number] Dict: 12/13/22 1210 Trans: 12/13/22 1252 [facility] [id number] Interpreted by: ALBA HODGE Electronically signed by: ALBA HODGE 12/13/22 1252 Reviewed: Reviewed by Me Departure Impression Primary Impression: Chest pain Qualified Codes: R07.9 - Chest pain, unspecified Additional Impressions: Chest wall pain Leukocytosis Qualified Codes: D72.829 - Elevated white blood cell count, unspecified CML (chronic myelocytic leukemia) Disposition: 01 HOME, SELF-CARE Condition: Stable Departure-Patient Inst. Decision time for Depature: 13:35 Referrals: SUJEY HORTON MD (PCP/Family) Primary Care Physician Patient Instructions: White Blood Cell Count Differential Test, Leukemia in Adults, Chest Pain (DC) Add. Discharge Instructions: All discharge instructions reviewed with patient and/or family. Voiced understanding. You may take your Tylenol arthritis up to 4 times a day as needed for pain. You may also minimally use ibuprofen 2 or 3 [id number] tablets (400 to 600 mg) every 8 hours as needed for pain but only use if needed. It is very important that you follow-up with your oncologist. Call them today for earlier follow-up appointment and let them know that the images from today were sent via cloud to for them to look at as well. Call and make appointment with your primary care doctor here locally. A copy of the chart was sent to his office. Return for worse pain, fever, vomiting, weakness, breathing problems or other concerns as needed. Continue other previous medications as prescribed. Copy Copies To 1: SUJEY HORTON MD, TIMOTHY D MD December 13, 2022 11:33
[2022-12-13 11:51] LABS: BILIRUBIN,TOTAL 0.3 MG/DL (0.1-1.0)
[2022-12-13 11:52] LABS: POTASSIUM 5.1 MMOL/L (3.6-5.0)
[2022-12-13] MEDS ORDERED: HOLD METFORMIN - RECEIVED CONTRAST 20 ML VIAL IV SCH (12:00)
[2022-12-13] MEDS ORDERED: IOHEXOL 350 MG/ML 100 ML (OMNIPAQUE 350) VIAL IV ONE (12:00)
[2022-12-13] MEDS ORDERED: NS 100 ML (IVPB) BAG IV ONE (12:00)
--- NOTE | 2022-12-13 12:20 | Diagnostic Imaging Report ---
INDICATION: Chest pain radiating into the shoulder, symptoms of 2-3 days. The patient has a history of leukemia. Compared with a CT angiogram chest performed 11/25/2021. FINDINGS: Pulmonary arterial branch is well opacified, widely patent. No filling defect. No PE. The thoracic aorta patent and nonaneurysmal and nonacute. There is a small right pleural effusion unilateral and having decreased in the interim without features of its loculation, today its about 2 cm, previously 4 cm, previous left pleural effusion has since resolved. Prior axillary lymphadenopathy has resolved. There is some mild diffuse thickening of the nicole of the esophagus throughout the chest unchanged from prior. No esophageal obstruction, perforation or visible esophageal focal mass. No consolidating pneumonia. No convincing evidence for pulmonary edema. Some body wall edema mild and decreased in the interim. The visible upper abdomen shows increased splenomegaly partially visualized and at least mild progression of periaortic retroperitoneal adenopathy and central and mesenteric adenopathy. There are postsurgical changes to the stomach. IMPRESSION: 1. No PE or acute aortic disease, decreased right pleural effusion and resolution of prior left pleural effusion. Resolution of left axillary adenopathy and decreased body wall edema. 2. However within the visible upper abdomen there is progressive splenomegaly and at least mild increased partially visualized retroperitoneal and mediastinal adenopathy. 3. Similar low attenuating thickening of the thoracic esophagus diffusely without focal abnormality, obstruction or perforation. Esophagitis could not be excluded. Dictated by: Dictated on workstation # [id number]
[2022-12-13 13:43] LABS: ANISOCYTOSIS SLIGHT; ATYPICAL LYMPHOCYTES 10 %; EOSINOPHILS % (MANUAL) 4 %; LYMPHOCYTES % (MANUAL) 44 %; MICROCYTOSIS SLIGHT; MONOCYTES % (MANUAL) 9 %; NEUTROPHILS % (MANUAL) 20 %; REACTIVE LYMPHOCYTES 13 %
[2022-12-13 13:44] VITALS: BP 119/61
[2022-12-13 13:45] LABS: ELLIPT/OVALOCYTES SLIGHT
== END 2022-12-13 13:44 | disposition home or self-care (01) ==
LOC: ER 10:11 → EDUNIT# 10:12 → ER 13:44
DX: R07.89 Other chest pain (principal); D72.829 Elevated white blood cell count, unspecified; C92.10 Chronic myeloid leukemia, BCR/ABL-positive, not having achieved remission; G47.30 Sleep apnea, unspecified; E11.9 Type 2 diabetes mellitus without complications; I10 Essential (primary) hypertension; E78.00 Pure hypercholesterolemia, unspecified; Z79.82 Long term (current) use of aspirin; Z99.89 Dependence on other enabling machines and devices
CPT/HCPCS: 36415; 71045; 71275; 80053; 83874; 84484; 85007; 85027; 86141; 93005

== ENCOUNTER → 2023-01-10 | Outpatient (CLI) | payer MEDICARE, OTHER | LOC: CARD 13:30 | PROVIDERS: ATTEND Internal Medicine Cardiovascular Disease | DX: I27.21 Secondary pulmonary arterial hypertension (principal); I51.7 Cardiomegaly | CPT/HCPCS: 93306 ==

== ENCOUNTER → 2023-03-13 | Outpatient (CLI) | payer MEDICARE, OTHER ==
--- NOTE | 2023-03-13 10:45 | Diagnostic Imaging Report ---
PROCEDURE: MR imaging cervical spine without contrast. TECHNIQUE: Multiplanar, multisequence MR imaging of the cervical spine was performed without contrast. INDICATION: Pain. COMPARISON: 12/24/2017. FINDINGS: The cervical spinal cord itself has unremarkable volume, morphology, and signal intensity. There is artifact from posterior instrumentation in the upper cervical spine. No fluid collection. No marrow edema. There is absence of the normal flow void in the left vertebral artery which may reflect its slow flow or occlusion. The ligamentous structures are intact. The alignment is stable. No acute marrow signal pathology. No paravertebral mass, hemorrhage, or fluid collection. Degenerative changes at the C1-C2 and C2-C3 levels are present resulting in no significant canal stenosis at C2-C3. There is mild left foraminal narrowing. C3-C4: Facet arthrosis, uncovertebral joint spurring, and disc bulge result in mild to moderate canal stenosis. There is moderate left and mild to moderate right foraminal narrowing. C4-C5: Uncovertebral joint spurring and facet arthrosis result in a moderate severity of biforaminal stenosis. There is only mild canal narrowing. C5-C6: There is no significant canal stenosis. The neuroforamen on the right is mildly narrowed and on the left is moderately stenosed. C6-C7: Mild biforaminal stenosis and mild central canal narrowing. IMPRESSION: 1. Multilevel predominantly foraminal stenoses as detailed level by level above. No acute cord or bony pathology. Surgical changes without fluid collection. Absence of the normal left cervical and intradural vertebral flow void which can be from relatively slow flow or its occlusion. 2. No acute appearing abnormality identified. Dictated by: Dictated on workstation # [id number]
== END ==
LOC: RAD 08:23
PROVIDERS: ATTEND Anesthesiology
DX: M47.812 Spondylosis without myelopathy or radiculopathy, cervical region (principal); M48.02 Spinal stenosis, cervical region; M77.9 Enthesopathy, unspecified; M50.21 Other cervical disc displacement, high cervical region
CPT/HCPCS: 72141

== ENCOUNTER 2023-06-06 09:54 | Outpatient (RCR) | payer MEDICARE, OTHER | END 2023-06-12 | disposition home or self-care (01) | PROVIDERS: ATTEND Anesthesiology | DX: M79.18 Myalgia, other site (principal) ==

== ENCOUNTER 2023-06-15 11:06 | Outpatient (RCR) | payer MEDICARE, OTHER | END 2023-07-12 | disposition home or self-care (01) | PROVIDERS: ATTEND Anesthesiology | DX: M79.18 Myalgia, other site (principal) ==